=== PATIENT | female | born 1940 | race Caucasian/White ===

== ENCOUNTER 2016-09-11 20:53 | Emergency (ER) | payer OTHER ==
[~2016-09-11] VITALS: Ht 160 cm; Wt 73.9 kg
[~2016-09-11 20:53] MED LIST: ATEN25TA PO; ATOR40TA16 PO; BACT800T5 PO; NEXI40CA PO; NORC5TAB PO; TRIA1CAP6 PO
[2016-09-11 20:55] VITALS: BP 168/61; PULSE 83; RESP 18; TEMP 98.6; O2SAT 98
--- NOTE | 2016-09-11 21:09 | PD ---
HPI Chief Complaint: Chest Pain Time Seen by Provider: 20:59 Travel History International Travel<30 days: No Contact w/Intl Traveler<30days: No Traveled to known affect area: No History of Present Illness HPI This is a 75-year-old female who presents to the emergency department with chest pain on the left side that's been going on for 1 week, constant, sharp, radiating to the back, with no associated shortness of breath, nausea or diaphoresis. She says she had a stress test one week ago and ever since they injected the medicine dispute upper heart she's been having these pains. She also has a hiatal hernia and suspects the pain could be related to that. She says she received a phone call from the supervisor mold shop office hitting her stress test was abnormal and she has a "clot". She was told it would be treated by medications. She never had a follow-up appointment with her supervisor mold shop. PFSH Past Medical History Hx Anticoagulant Therapy: Yes (asa 81mg) Cardiovascular Problems: Yes High Cholesterol: Yes Chest Pain: Yes Diabetes: No Diminished Hearing: No Gastrointestinal Disorders: Yes (IBS) GERD: Yes Hiatal Hernia: Yes Hypertension: Yes ?: Not Past Surgical History Cholecystectomy: Yes Eye Surgery: Yes (BL cataracts) Hysterectomy: Yes Joint Replacement: Yes (BL knees) Other Surgery: Yes ((R) rotator cuff) Family History Family Hypercholesterolemia: Yes Social History Alcohol Use: No Tobacco Use: No Substance Use: No Allergies-Medications (Allergen,Severity, Reaction): Coded Allergies: *MDRO Multi-Drug Resistant Organism (Verified Adverse Reaction, Unknown, ) 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 HEAD: Atraumatic. Normocephalic. EYES: Pupils equal and round. No injection or drainage. ENT: Moist mucous membranes NECK: Trachea midline. CARDIOVASCULAR: Regular rate and rhythm. 3/6 systolic murmur in the right upper sternal border. RESPIRATORY: Clear to auscultation. Breath sounds equal bilaterally. GASTROINTESTINAL: Abdomen soft, non-tender, nondistended. MUSCULOSKELETAL: No obvious deformities. NEUROLOGICAL: Awake and alert. No obvious cranial nerve deficits. Moving all extremities. PSYCHIATRIC: Appropriate mood and affect; insight and judgment normal. Data Data Last Documented VS Vital Signs Date Time Temp Pulse Resp B/P Pulse Ox O2 Delivery O2 Flow Rate FiO2 09/11/16 22:06 65 18 99 Room Air 09/11/16 20:55 98.6 Orders Complete Blood Count With Diff (09/11/16 21:06) Comprehensive Metabolic Panel (09/11/16 21:06) Troponin I (09/11/16 21:06) Chest, Single Ap (09/11/16 ) Aspirin Chew (Aspirin Chew) (09/11/16 21:15) Nitroglycerin Sl (Nitrostat Sl) (09/11/16 21:30) Al-Mag Hy-Si 40-40-4 Mg/Ml Liq (Mag-Al P (09/11/16 21:45) Lidocaine 2% Viscous (Xylocaine 2% Visco (09/11/16 21:45) Wjbeq-Ejtrar-Wdyrpe-Pb Liq ( Liq (09/11/16 21:45) Electrocardiogram (09/11/16 20:54) Troponin I (09/11/16 23:14) Labs Laboratory Tests Test 09/11/16 09/11/16 20:55 23:30 White Blood Count 11.3 TH/MM3 Red Blood Count 4.37 MIL/MM3 Hemoglobin 13.1 GM/DL Hematocrit 39.0 % Mean Corpuscular Volume 89.4 FL Mean Corpuscular Hemoglobin 29.9 PG Mean Corpuscular Hemoglobin 33.5 % Concent Red Cell Distribution Width 13.7 % Platelet Count 352 TH/MM3 Mean Platelet Volume 8.7 FL Neutrophils (%) (Auto) 69.5 % Lymphocytes (%) (Auto) 21.0 % Monocytes (%) (Auto) 8.4 % Eosinophils (%) (Auto) 0.7 % Basophils (%) (Auto) 0.4 % Neutrophils # (Auto) 7.9 TH/MM3 Lymphocytes # (Auto) 2.4 TH/MM3 Monocytes # (Auto) 0.9 TH/MM3 Eosinophils # (Auto) 0.1 TH/MM3 Basophils # (Auto) 0.0 TH/MM3 CBC Comment DIFF FINAL Differential Comment Sodium Level 143 MEQ/L Potassium Level 3.0 MEQ/L Chloride Level 107 MEQ/L Carbon Dioxide Level 28.3 MEQ/L Anion Gap 8 MEQ/L Blood Urea Nitrogen 17 MG/DL Creatinine 0.75 MG/DL Estimat Glomerular Filtration 76 ML/MIN Rate Random Glucose 164 MG/DL Calcium Level 9.0 MG/DL Total Bilirubin 0.3 MG/DL Aspartate Amino Transf 17 U/L (AST/SGOT) Alanine Aminotransferase 27 U/L (ALT/SGPT) Alkaline Phosphatase 118 U/L Troponin I LESS THAN 0.02 LESS THAN 0.02 NG/ML NG/ML Total Protein 7.1 GM/DL Albumin 3.4 GM/DL [facility] Medical Decision Making Medical Screen Exam Complete: Yes Emergency Medical Condition: Yes Interpretation(s) Afebrile, no tachycardia, hypertensive Mild leukocytosis Mild hypokalemia Troponin normal 2 Chest x-rays reassuring EKG: nsr, st depression in the lateral leads Differential Diagnosis Hiatal hernia, GERD, acute coronary syndrome, unstable angina Narrative Course This is a 75-year-old female who presents to the emergency department with left- sided chest pain that's been present ever since she had a nuclear stress test 10 days ago. She was placed on a monitor and an IV was established. She does have some ST depressions on EKG. She was placed on a monitor and an IV was established. Labs are obtained which demonstrate two serial normal troponins. Her pain has been constant over the past week. It is improved here following a GI cocktail. I spoke to Dr. Obrien regarding the patient. She said the patient did in fact have an abnormal stress test with some anterior perfusion abnormality. Based on Dr. Higgins's notes she thinks he wasn't inclined to take the patient back to catheterization at this time because she was asymptomatic. I discussed with the patient that she likely requires catheterization given her new symptoms. I offered her admission for catheterization on Wednesday and monitoring in the hospital. The patient adamantly declines being admitted to the hospital. She has a developmentally delayed son at home and she has to take care of him. She understands the risks of possible heart attack or unstable angina but she would like to leave. I emphasized to her the importance of following up with her supervisor mold shop on Wednesday and she will likely need a catheterization as an outpatient. Diagnosis Primary Impression: Atypical chest pain Patient Instructions: General Instructions Additional Instructions: If you develop severe chest pain, shortness of breath, sweating, lightheadedness , dizziness or difficulty breathing return to the emergency department immediately. Follow-up with Dr. Higgins on Wednesday without fail. If your symptoms worsen over the weekend return to the emergency department without fail. Med/Other Pt SpecificInfo: No Change to Meds Disposition: 01 DISCHARGE HOME Condition: Stable Stephenie Garcia MD Sep 11, 2016 21:09
[2016-09-11] MEDS ORDERED: ASPIRIN 81 MG CHEW TAB CHEW ONE (21:15)
[2016-09-11 21:20] LABS: AUTOMATED NEUTROPHIL # 7.9 TH/MM3 (1.8-7.7); BASOPHIL % 0.4 % (0.0-2.0); EOSINOPHIL # 0.1 TH/MM3 (0-0.4); EOSINOPHIL % 0.7 % (0.0-4.0); HEMO FLAGS DIFF FINAL; LYMPHOCYTE # 2.4 TH/MM3 (1.0-4.8); MEAN CELL VOLUME 89.4 FL (80.0-100.0); MEAN CORPUSCULAR HEMOGLOBIN 29.9 PG (27.0-34.0); MEAN CORPUSCULAR HGB CONC 33.5 % (32.0-36.0); MONO % 8.4 % (0.0-8.0); NEUT % 69.5 % (16.0-70.0); PLATELET COUNT 352 TH/MM3 (150-450); RED BLOOD COUNT 4.37 MIL/MM3 (4.00-5.30); RED CELL DISTRIBUTION WIDTH 13.7 % (11.6-17.2); WHITE BLOOD COUNT 11.3 TH/MM3 (4.0-11.0)
[2016-09-11 21:28] LABS: CHLORIDE 107 MEQ/L (98-107); SODIUM (NA) 143 MEQ/L (136-145)
[2016-09-11] MEDS ORDERED: NITROGLYCERIN 0.4 MG SL 25 TABS/BTL SL PRN (21:30)
[2016-09-11 21:32] LABS: ANION GAP 8 MEQ/L (5-15); BICARBONATE 28.3 MEQ/L (21.0-32.0); BLOOD UREA NITROGEN 17 MG/DL (7-18)
[2016-09-11 21:35] LABS: ALT (GPT) 27 U/L (10-53); AST (GOT) 17 U/L (15-37); GLOMERULAR FILTRATION RATE 76 ML/MIN (>89)
[2016-09-11 21:36] LABS: TOTAL BILIRUBIN ADULT 0.3 MG/DL (0.2-1.0)
[2016-09-11 21:38] LABS: ALKALINE PHOSPHATASE 118 U/L (45-117)
[2016-09-11] MEDS ORDERED: ATROPINE/SCOPOLAM/HYOSCYAM/PB ELIXIR 10 ML CUP PO ONE (21:45)
[2016-09-11] MEDS ORDERED: ALUMINUM/MAGNESIUM/SIMETH 30 ML CUP PO ONE (21:45)
[2016-09-11] MEDS ORDERED: LIDOCAINE VISCOUS 2% SOLN 15 ML UDC SWISH-SWAL ONE (21:45)
--- NOTE | 2016-09-11 21:47 | RADHPO ---
EXAM DATE/TIME: 09/11/2016 21:21 [place] COMPARISON: CHEST SINGLE AP, October 11, 2013, 12:12. INDICATIONS : Chest pain. MEDICAL HISTORY : Hiatal hernia SURGICAL HISTORY : None. ENCOUNTER: Initial ACUITY: 1 week PAIN SCORE: 1/10 LOCATION: Bilateral chest FINDINGS: Single AP view of the chest. Subsegmental atelectasis at the lung bases. The lungs are otherwise fransisco r. Cardiomediastinal silhouette within normal limits. No evidence of pleural effusion or pneumothorax . CONCLUSION: No acute cardiopulmonary disease identified. Didier Lopez MD on September 11, 2016 at 21:44 Board Certified Radiologist. This report was verified electronically.
[2016-09-11 22:06] VITALS: PULSE 65; RESP 18; O2SAT 99
[2016-09-12 00:16] VITALS: BP 179/85; PULSE 72; RESP 18; O2SAT 99
--- NOTE | 2016-09-12 13:17 | EKG ---
Date Performed: 09/11/2016 Time Performed: 20:54:59 PTAGE: 75 years EKG: Sinus rhythm MODERATE ST DEPRESSION ABNORMAL ECG INTERPRETATION BASED ON A DEFAULT AGE OF 40 YEARS PREVIOUS TRACING : 06/25/2015 09.32 Compared to prior tracing no significant change DOCTOR: Jose Eduardo Reese Interpretating Date/Time 09/12/2016 13:16:47
== END 2016-09-12 00:19 | disposition home or self-care (01) ==
LOC: PHED 20:53
DX: R07.89 Other chest pain (principal); E78.00 Pure hypercholesterolemia, unspecified; I10 Essential (primary) hypertension; Z79.82 Long term (current) use of aspirin
CPT/HCPCS: 71010; 80053; 84484; 85025; 93005; 99284

== ENCOUNTER 2016-10-07 06:45 | Day surgery (SDC) | payer OTHER ==
[~2016-10-07] VITALS: Ht 160 cm; Wt 72.7 kg
[~2016-10-07 06:45] MED LIST changes: -BACT800T5 PO; -NORC5TAB PO
[2016-10-07] MEDS ORDERED: diphenhydrAMINE HCL 50 MG CAP ONE (07:02)
[2016-10-07] MEDS ORDERED: diphenhydrAMINE HCL 50 MG CAP PO SCH (07:15)
[2016-10-07] MEDS ORDERED: NS 1000P @30 MLS/HR (KVO) IV SCH (07:15)
[2016-10-07] MEDS ORDERED: CLAR10TA2 (07:29)
[2016-10-07] MEDS ORDERED: CO Q30CA3 (07:29)
[2016-10-07] MEDS ORDERED: MULT1TAB46 (07:29)
[2016-10-07] MEDS ORDERED: ASPI81TA67 PO (07:29)
[2016-10-07] MEDS ORDERED: CINN500C13 PO (07:29)
[2016-10-07] MEDS ORDERED: BOSW5TAB PO (07:29)
[2016-10-07] MEDS ORDERED: VITA100064 PO (07:29)
[2016-10-07] MEDS ORDERED: CALC500T35 (07:29)
[2016-10-07] MEDS ORDERED: VITATAB11 (07:29)
[2016-10-07] MEDS ORDERED: OMEG300C5 (07:29)
[2016-10-07] MEDS ORDERED: CETI1TAB53 (07:29)
[2016-10-07 07:32] VITALS: BP 160/78; PULSE 68; RESP 16; TEMP 97.6; O2SAT 98
[2016-10-07 08:05] LABS: AUTOMATED NEUTROPHIL # 5.7 TH/MM3 (1.8-7.7); BASOPHIL # 0.1 TH/MM3 (0-0.2); BASOPHIL % 0.6 % (0.0-2.0); EOSINOPHIL # 0.1 TH/MM3 (0-0.4); EOSINOPHIL % 0.9 % (0.0-4.0); HEMATOCRIT 37.9 % (35.0-46.0); HEMO FLAGS DIFF FINAL; LYMPH % 25.1 % (9.0-44.0); LYMPHOCYTE # 2.2 TH/MM3 (1.0-4.8); MEAN CORPUSCULAR HEMOGLOBIN 29.5 PG (27.0-34.0); MEAN CORPUSCULAR HGB CONC 33.9 % (32.0-36.0); MONO % 8.4 % (0.0-8.0); PLATELET COUNT 316 TH/MM3 (150-450); RED BLOOD COUNT 4.36 MIL/MM3 (4.00-5.30); RED CELL DISTRIBUTION WIDTH 14.4 % (11.6-17.2); WHITE BLOOD COUNT 8.8 TH/MM3 (4.0-11.0)
[2016-10-07 08:14] LABS: BICARBONATE 29.6 MEQ/L (21.0-32.0); POTASSIUM 3.6 MEQ/L (3.5-5.1)
[2016-10-07 08:15] LABS: INTERNATIONAL NORMALIZED RATIO 0.9 RATIO
[2016-10-07] MEDS ORDERED: HEPARIN-NS/PF INJ 500 ML ONE ×2 (08:37)
[2016-10-07] MEDS ORDERED: MIDAZOLAM HCL 2 MG/2 ML VIAL ONE ×2 (08:44→09:22)
[2016-10-07] MEDS ORDERED: VERAPAMIL HCL 5 MG/2 ML VIAL ONE (08:45)
[2016-10-07] MEDS ORDERED: NITROGLYCERIN INJ 5 ML ONE (08:45)
[2016-10-07] MEDS ORDERED: HEPARIN SODIUM - IV 10,000 UNITS/10 ML VIAL ONE (08:45)
[2016-10-07] MEDS ORDERED: ONDANSETRON HCL 4 MG/2 ML VIAL ONE (09:23)
[2016-10-07] MEDS ORDERED: CLOPIDOGREL 300 MG TAB ONE (09:31)
[2016-10-07] MEDS ORDERED: PRASUGREL 10 MG TAB ONE (09:43)
[2016-10-07] MEDS ORDERED: SODIUM CHLOR 0.9% 1000 ML INJ 1,000 ML IV SCH (09:53)
--- NOTE | 2016-10-07 09:57 | CATHPROC ---
[facility] HIS Report Study Information Study Number Admission Scheduled Start Study Start [id number] Oct 07 2016 6:45AM 10/07/2016 Oct 07 2016 8:32AM [place] [facility] Cardiac Catheterization Admit Source Facility Department Other [facility] - Engineering Recruiter Physician and Clinical Staff Initial MD Lee, Scotty Ship Wirer Kevin SKINNER, Glen Other cathlab, cathlab Other Yelena Hightower,SUSANNE Recorder Odilia Fernando,TRANSCRIBING OPERATORS SUPERVISOR TECH2 Scrub Lalo Eduardo RCIS(BS) Procedures Performed Procedure Location (Site) Vessel Name Coronary Angiograms LCA Left Coronary Coronary Angiograms RCA Right Coronary Drug Eluting Inflatio LAD Prox Left Coronary L Heart Cath LV Gram-hand inj. LV LV Ventricle PTCA LAD Prox Left Coronary Equipment Time Automotive Service Cashier Description Size Mfg Part Number Used/Scraped COPILOT VALVE, BLEEDBACK [id number] 09:20 [employer] Used CONTROL *[id number] TRANSDUCER, TRUWAVE [id number] 08:44 MOLINA HIGHTOWER * Used W/STOCKCOCK *[id number] [id number] *[id number] 534-521T *[id number] *[id number] 08:44 MEDLINE INDUSTRIES PACK, CCL CUSTOM * Used *[id number] 08:44 Kiwiple SUPPORT, ARTERIAL ADULT 01430 Used BALLOON, 3.25 X 12MM NC [id number] 09:38 MEDTRONIC 12MM Used EUPHORA *[id number] STENT, 3.0 15 RESOLUTE [id number] 09:30 MEDTRONIC 3.0 15 Used INTEGRITY RX *[id number] 09:30 [employer] MEDICAL 30 CODY INDEFLATOR Used *[id number] BAND, RADIAL COMPRESSION TR [id number] 09:38 [employer] MEDICAL 24CM Used SHORT 24 *[id number] 09:20 turntable.fm PACK, ANGIOPLASTY * [id number] Used [id number] 08:44 turntable.fm WIRE, 3MMJ .035 180CM 180CM Used *[id number] 08:44 NAMIC MANIFOLD, 4 PORT * Used *[id number] 08:44 NYCOMED OMNIPAQUE, 350 MG, 150ML 150ML [id number] Used [id number] 08:44 [employer] MEDICAL BLANKET,WARM AIR CCL * Used *[id number] SHEATH, FR6 TRANSRADIAL 08:44 TERSlidely MEDICAL FR 6 RM*[id number] Used SLENDER 10CM 09:16 [place] PRIME WIRE, VERRATA 185CM 185CM [id number] *[id number] Used Equipment Model, Serial, Lot Number and Expiration Data Description Model Number Serial Number Lot Number Expiration Date PACK, ANGIOPLASTY [id number] 04-28-2019 PRIME WIRE, VERRATA 185CM [id number] 07-27-2019 STENT, 3.0 15 RESOLUTE [id number] 06-14-2018 INTEGRITY RX History: Current Medications Medication Dosage/Unit Route Frequency Last Date/Time Taken ASA Statins (any) Nexium History: Allergies Allergy Reaction *MDRO Multi-Drug Resistant Organism History: Risk Factors Family History of Hypertension Dyslipidemia Previous UT Previous Heart Failure Premature CAD Yes Yes Yes No No Prior Valve Prior PCI Prior CABG Surgery No No No Cerebrovascular Peripheral Artery Chronic Lung On Dialysis Diabetes Disease Disease Disease No No No No No History: Stress Tests Stress or Imaging Studies Performed Yes Standard Exercise Stress Test No Stress Echo No Stress Test SPECT No Stress Test CMR Stress Test CMR Result Yes Indeterminant Cardiac CTA Coronary Calcium Score No No History: Other Disease Selection Items CAD Gerd HTN History: Other Current Smoker No Labs Hgb (g/dl) Hct (%) WBC (l/cumm) Platelets (thousands) 11.60-17.00 35.00-51.00 4.00-11.00 150.00-450.00 12.9 37.9 8.8 316 Glucose (mg/dl) BUN (mg/dl) Creatinine (mg/dl) BUN:Creatinine (1:x) 74.00-106.00 7.00-18.00 0.50-1.30 10.00-20.00 99 12 0.7 17.1 Na (meq/l) K (meq/l) 136.00-145.00 3.50-5.10 144 3.6 Medication Medication Total Dose (Bolus/Oral) Medication Total Dosage/Unit 1% XYLOCAINE 5 mL EFFIENT 60 mg FENTANYL 75 mcg HEPARIN 5000 units OXYGEN 2 l/min RADIAL COCKTAIL 5 mL (Bolus) VERSED 2 mg ZOFRAN 4 mg Medications (Bolus/Oral) Medication Time Given Dosage/Unit Administered By Reason FENTANYL 10/07/2016 8:59:00 AM 50 mcg Glen Brown RN 50 mcg FENTANYL given in lab by Glen Brown RN in Left Antecubital via Peripheral IV. Ordered by Scotty Patel. VERSED 10/07/2016 9:00:25 AM 2 mg Glen Brown RN 2 mg VERSED given in lab by Glen Brown RN via Peripheral IV. Ordered by Scotty Lee. 1% XYLOCAINE 10/07/2016 9:01:59 AM 5 mL Scotty Lee 5 mL 1% XYLOCAINE given in lab by Scotty Lee in Right Radial via Subcutaneous. Ordered by Scotty Henderson. OXYGEN 10/07/2016 9:02:48 AM 2 l/min Glen Brown RN 2 l/min OXYGEN given in lab by Glen Brown RN via Nasal. Ordered by Scotyt Lee. Ntg 200mcg Verapamil 2.5mg Heparin RADIAL COCKTAIL 10/07/2016 9:04:23 AM 5 mL (Bolus) Scotty Lee 2500U 5 mL (Bolus) RADIAL COCKTAIL given in lab by Scotty Lee via Radial. Using [Solution Name]. Ord ered by Scotty Lee. Reason: Ntg 200mcg Verapamil 2.5mg Heparin 2500U. HEPARIN 10/07/2016 9:18:14 AM 5000 units Glen Brown RN 5000 units HEPARIN given in lab by Glen Brown RN in Left Antecubital via Peripheral IV. Ordered by Scotty Lee. FENTANYL 10/07/2016 9:19:20 AM 25 mcg Glen Brown RN 25 mcg FENTANYL given in lab by Glen Brown RN in Left Antecubital via Peripheral IV. Ordered by Scotty Patel. ZOFRAN 10/07/2016 9:24:48 AM 4 mg Yelena Hightower 4 mg ZOFRAN given in lab by Yelena Hightower RN in Right Antecubital via Peripheral IV. Ordered by Scotty Lee. EFFIENT 10/07/2016 9:42:53 AM 60 mg Glne Brown RN 60 mg EFFIENT given in lab by Glen Brown RN via Oral. Ordered by Scotty Lee. Medication (Drip) Medication Time Given Dosage/Unit Concentration/Unit Diluent (ml) Solutio n IV Solutions 10/07/2016 8:32:20 AM 0 mL (IV) NaCl .9 Patient arrived on IV Solutions given by cathlab, cathlab in Left Antecubital via Peripheral IV. Pump /Drip Flow = 20 ml/hr using NaCl .9. Ordered by Scotty Lee. Initial Case Assessment Cardiovascular HR NIBP 66 177/76 Edema Present Skin color Skin None Normal Warm Dry Circulatory - Right Pulses Dorsalis Pedis Femoral Radial 1 2 2 Scale (0,1,2,3,4,d) Scale (0,1,2,3,4,d) Neurological State Oriented to time-place- Alert Moves all extremities person Respiration - General Respiration Rate SpO2 (%) (B/min) 11 100 Initial Case Assessment Cardiovascular HR NIBP 71 140/59 Edema Present Skin color Skin None Normal Warm Dry Circulatory - Right Pulses Dorsalis Pedis Femoral Radial 1 2 2 Scale (0,1,2,3,4,d) Scale (0,1,2,3,4,d) Neurological State Oriented to time-place- Alert Moves all extremities person Respiration - General Respiration Rate SpO2 (%) (B/min) 12 98 Chronological Log Time Study Chronological Log 8:32:09 Patient arrived via Bed. 8:32:10 Patient Name, D.O.B, / Armband Verified By R.N. 8:32:11 Consent signed by the physician and the patient and verified by the Engineering Recruiter staff. 8:32:12 Pre-op and post- op instructions given; patient acknowledges understanding of instructions. 8:32:14 Patient has been NPO for More than 6Hrs. 8:32:15 NO Skin Breakdown- 8:32:16 Patient Warmer Placed on the Table. 8:32:20 A # 10 IV was noted in the Antecubital (left). Grade = 0 Patient arrived on IV Solutions given by cathlab, cathlab in Left Antecubital via Peripheral IV. Pump/Drip Flow = 20 8:32:20 ml/hr using NaCl .9. Ordered by Scotty Lee. Vitals capture started with the following parameters, Patient=Adult, Interval=5 min, Initial Pre hlgqo=083 mmHg, 8:41:43 Deflation Rate=5 mmHg 8:41:47 History and physical on the chart or being dictated. 8:42:13 Reference ECG taken 8:43:08 HR=66 bpm, QGDU=776/76 mmhg, SpO2=99.0 %, Resp=11 B/min, Pain=0, Joaquin=10, Allen=2 Assessment: Initial Case, HR=66 BPM, OFET=301/76 mmhg, Edema=None, Color=Normal, Skin = Warm, Dr y Right Pulses: Rai Ped=1, Femoral=2, Radial=2 8:43:29 Neurological: State=Alert, Ox3, CAMARA Respiration: Resp=11 B/min, GkL8=559 % 8:47:22 HR=64 bpm, YEEZ=082/74 mmhg, SpO2=98.0 %, Resp=14 B/min, Pain=0, Joaquin=10, Allen=2 8:50:01 Pressure channel 1 zeroed. 8:52:25 HR=65 bpm, MTKK=059/71 mmhg, PwN8=023.0 %, Resp=9 B/min, Pain=0, Joaquin=10, Allen=2 8:57:26 HR=59 bpm, ISNF=355/69 mmhg, SpO2=99.0 %, Resp=11 B/min, Pain=0, Joaquin=10, Allen=2 8:59:00 50 mcg FENTANYL given in lab by Glen Brown RN in Left Antecubital via Peripheral IV. Order ed by Scotty Lee. 9:00:25 2 mg VERSED given in lab by Glen Brown RN via Peripheral IV. Ordered by Pedro. Rosa 9:01:57 Case Start 5 mL 1% XYLOCAINE given in lab by Scotty Lee in Right Radial via Subcutaneous. Ordered by Rosa 9:01:59 Scotty. 9:02:19 HR=52 bpm, ADLA=455/81 mmhg, SpO2=96.0 %, Resp=12 B/min, Pain=0, Joaquin=10, Allen=2 9:02:47 Access site was Radial Artery. 9:02:48 2 l/min OXYGEN given in lab by Glen Brown RN via Nasal. Ordered by Scotty Lee. A SHEATH, FR6 TRANSRADIAL SLENDER 10CM FR 6 was advanced into the Radial (right) using the Modif ied Seldingchay :59 technique. A JR 4.0 INFINITI CATHETER FR 5 was advanced over a wire. OMNIPAQUE, 350 MG, 150ML 150ML was use d for 9:03:44 injections. 5 mL (Bolus) RADIAL COCKTAIL given in lab by Scotty Lee via Radial. Using [Solution Name] . Ordered by Ruthie 9:04:23 Scotty Lewis. Reason: Ntg 200mcg Verapamil 2.5mg Heparin 2500U. Recorded Pressure: LV, HR=68, Condition=Condition 1 9:05:24 (Left Ventricle) LV 141/2/14 9:05:45 The LV was manually injected with 10 cc's and visualized. OMNIPAQUE, 350 MG, 150ML 150ML use d. Recorded Pressure: LV, Ao, HR=67, Condition=Condition 1 9:06:13 (Left Ventricle) LV 164/9/16, (Aorta) Ao 160/55/102 9:07:26 HR=70 bpm, TXDD=536/66 mmhg, SpO2=97.0 %, Resp=13 B/min, Pain=0, Joaquin=10, Allen=2 9:07:26 The RCA was injected and visualized at various angles. OMNIPAQUE, 350 MG, 150ML 150ML used. After removing the current catheter a JL 3.5 INFINITI CATHETER FR 5 was advanced over a WIRE, 3M MJ .035 180CM 9:07:35 180CM. Recorded Pressure: Ao, HR=60, Condition=Condition 1 9:08:45 (Aorta) Ao 151/61/96 9:09:35 The LCA was injected and visualized at various angles. OMNIPAQUE, 350 MG, 150ML 150ML used. 9:12:28 HR=68 bpm, WFUV=671/63 mmhg, SpO2=97.0 %, Resp=13 B/min, Pain=0, Joaquin=10, Allen=2 9:16:13 After removing the current catheter a XB 3.5 GUIDE CATHETER FR 6 was advanced over a wire. 9:17:25 HR=73 bpm, LNLC=063/71 mmhg, SpO2=98.0 %, Resp=15 B/min, Pain=0, Joaquin=10, Allen=2 9:18:14 5000 units HEPARIN given in lab by Glen Brown RN in Left Antecubital via Peripheral IV. Or dered by Scotty Lee. 9:19:20 25 mcg FENTANYL given in lab by Glen Brown RN in Left Antecubital via Peripheral IV. Order ed by Scotty Lee. 9:21:56 Pressure channel 1 zeroed. 9:23:07 HR=81 bpm, GLMS=256/77 mmhg, SpO2=98.0 %, Resp=14 B/min, Pain=0, Joaquin=10, Allen=2 9:24:17 Flow Wire was was placed in the LAD Prox. The FFR measures 0.84 percent. The IFR measures ~I FR~ Percent. 4 mg ZOFRAN given in lab by Yelena Hightower RN in Right Antecubital via Peripheral IV. Ordere d by Rosa, 9:24:48 Scotty. 9:27:35 HR=66 bpm, KBFL=858/59 mmhg, SpO2=97.0 %, Resp=13 B/min, Pain=0, Joaquin=10, Allen=2 A STENT, 3.0 15 RESOLUTE INTEGRITY RX 3.0 15 was advanced through a XB 3.5 GUIDE CATHETER FR 6 o micki a 9:30:42 PRIME WIRE, VERRATA 185CM 185CM. A STENT, 3.0 15 RESOLUTE INTEGRITY RX 3.0 15 was deployed using a 30 CODY INDEFLATOR at 12 atmosp heres for 9:31:59 20 seconds in the LAD Prox. 9:32:28 HR=74 bpm, IAJH=046/63 mmhg, SpO2=98.0 %, Resp=12 B/min, Pain=0, Joaquin=10, Allen=2 9:32:30 Delivery device removed 9:35:23 A balloons was inserted over PRIME WIRE, VERRATA 185CM 185CM via the LAD Prox. A BALLOON, 3.25 X 12MM NC EUPHORA 12MM over a PRIME WIRE, VERRATA 185CM 185CM in the LAD Prox wa s 9:35:41 inflated using a 30 CODY INDEFLATOR at 18 cody for 20 sec. A BALLOON, 3.25 X 12MM NC EUPHORA 12MM over a PRIME WIRE, VERRATA 185CM 185CM in the LAD Prox wa s 9:36:38 inflated using a 30 CODY INDEFLATOR at 18 cody for 20 sec. 9:37:04 Balloon Removed. 9:37:27 HR=76 bpm, RDEM=346/73 mmhg, UgR4=166.0 %, Resp=16 B/min, Pain=0, Joaquin=10, Allen=2 9:38:06 Wire removed 9:38:08 Catheter was removed 9:39:19 Case End PCI QA completed: Pre-Jermaine - ~PRE JERMAINE~, Post Jermaine - ~POST JERMAINE~, Type - C, Length - 15 mm, Morp hology - 9:39:20 Atypical, Indications - Lesion > 50 non-stem, Pre-Stenosis - 70% and Post Stenosis - 0%. 9:39:21 PCI QA obtained from Plumbing Service Technician 9:42:04 Catheter(s) removed without difficulty Radial Compression Device Used. 10 mLs of air placed in BAND, RADIAL COMPRESSION TR SHORT 24 24C M. Affected 9:42:07 hand 978 % O2 saturation. 9:42:32 HR=71 bpm, DQBX=347/59 mmhg, SpO2=98.0 %, Resp=12 B/min, Pain=0, Joaquin=10, Allen=2 9:42:53 60 mg EFFIENT given in lab by Glen Brown RN via Oral. Ordered by Scotty Lee. Assessment: Initial Case, HR=71 BPM, XRON=062/59 mmhg, Edema=None, Color=Normal, Skin = Warm, Dr y Right Pulses: Rai Ped=1, Femoral=2, Radial=2 9:43:56 Neurological: State=Alert, Ox3, CAMARA Respiration: Resp=12 B/min, SpO2=98 % 9:45:04 Vitals capture stopped. 9:45:41 No case complications noted. 9:45:43 Cine recording checked. 9:45:46 Contrast Scanned 9:45:49 A Left Heart Cath was performed. 9:45:52 Patient moved to [facility] End Study - Contrast Media Used In Study Contrast Total Opened (mL) Total Used (mL) Total Wasted (mL) Omnipaque 105 105 0 End Study - Maximum Contrast Load Max Contrast Load (mL) 519.2 End Study - Radiation Exposure Fluoro Time (minutes) 9.9 End Study - Patient Disposition Complications Transferred To Interventional Outcome No Telemetry Bed successful
[2016-10-07] MEDS ORDERED: ONDANSETRON HCL 4 MG/2 ML VIAL IV PRN (10:00)
[2016-10-07] MEDS ORDERED: ACETAMINOPHEN 325 MG TAB PO PRN (10:00)
[2016-10-07] MEDS ORDERED: ATROPINE SULFATE 1 MG/ML VIAL IV PRN (10:00)
[2016-10-07] MEDS ORDERED: PRASUGREL 10 MG TAB PO ONE (10:00)
[2016-10-07] MEDS ORDERED: MISC INFORMATION XX ONE (10:00)
--- NOTE | 2016-10-07 10:16 | MA ---
cc: MIRACLEDAMON Freitas DATE: 10/07/2016 DATE OF : 1940 PROCEDURE PERFORMED 1. Left heart catheterization. 2. Selective right and left coronary angiography. 3. Left ventriculogram. 4. IFR to LAD. 5. Successful PCI/JONATHAN to proximal LAD. INDICATION Positive stress test/angina/positive IFR. PROCEDURE DESCRIPTION Consent signed. The patient was brought into the cardiac laborer concrete paving in a fasting state. The right wrist and groin were prepped and draped in a sterile fashion. Using 1% lidocaine for local anesthesia and a micropuncture kit a 6-Slov[place] sheath was inserted into the right radial artery. An antispasmodic cocktail was given. Selective right and left coronary angiography was performed with a JR4 and a JL 3.5 diagnostic catheter. Angiography was taken in multiple views. The JR4 was introduced into the ventricle over a wire. This was followed by pressure recordings, left ventriculogram and pullback. We identified a progression of the proximal LAD lesion that was seen in the previous laborer concrete paving of 70% stenosis. Given the borderline significance of the obstructions we decided to do an IFR to further assess for ischemia. To do the IFR the left main was engaged with a EBU 3.5 guide. IV heparin was given for anticoagulation. The pressure wire was equalized outside the lesion and advanced across the LAD and parked distally into the LAD. This was followed by pressure recordings. The final IFR was 0.84 which is significant for ischemia, thus we decided to directly stent the lesion with a 3.0 x 15 drug-eluting stent. The stent was post dilated with a noncompliant 3.2 x 12 balloon to high atmospheres. Final angiographic views revealed good stent apposition and expansion with ASAD-III flow and no residual stenosis. The patient tolerated the procedure well without complications. Estimated blood loss less than 30 cc. Total contrast used 100 cc. The right wrist access site was closed with a TR band. RESULTS LEFT VENTRICLE The left ventricular pressure was 164/9 with an LVEDP of 16. The aortic pressure was 151/61 with a mean of 96. The left ventriculogram revealed a symmetrically roxanna ventricle with an estimated ejection fraction of 60%. There was no gradient upon pullback from the left ventricle to the aorta. ANGIOGRAPHY 1. The right coronary artery is a dominant vessel giving off the PDA. The RCA is a small vessel. It has no significant CAD. It does have a 10 % lesion in the proximal segment. The PDA is small and patent. 2. The left main is wide open and patent. 3. The LAD is a transapical vessel, has minimal calcifications especially in its proximal to midsegment, is tortuous. There is a 70% lesion in the proximal segment of this vessel. There is one prominent diagonal vessel which is tortuous and patent with nonobstructive coronary artery disease. 4. The left circumflex artery is tortuous. It has minimal luminal irregularities throughout. She has three OM branches, all patent with ASAD-III flow and really tortuous. The AV groove segment of the left circumflex is patent with ASAD-III flow and nonobstructive disease. CONCLUSIONS 1. Successful PCI/JONATHAN to proximal LAD in the setting of positive stress test and positive IFR. 2. Preserved LV systolic function. RECOMMENDATIONS The patient will be transferred to the DOC unit for post-cath recovery. She will be continued on aspirin and Effient for dual-antiplatelet agent as well as aggressive medical management for cardiovascular risk factors. If stable she should be able to be discharged home today with follow-up with me in 7 days. MD ABILIO Llamas/BT /9:51 AM /10:03 AM JEREL
[2016-10-07] MEDS ORDERED: IOHEXOL 350 MG/ML 100 ML BTL (for Cath Lab) OTHER ONE (14:05)
[2016-10-07] MEDS ORDERED: IOHEXOL 350 MG/ML 50 ML BTL (for Cath Lab) OTHER ONE (14:05)
--- NOTE | 2016-10-07 16:26 | EKG ---
Date Performed: 10/07/2016 Time Performed: 07:51:40 PTAGE: 75 years EKG: Sinus bradycardia. Low QRS voltages in precordial leads Borderline ECG PREVIOUS TRACING : 09/11/2016 20.54 No significant change from previous tracing noted. DOCTOR: Franklyn Adam Interpretating Date/Time 10/07/2016 16:25:04
[2016-10-07] MEDS ORDERED: ATORVASTATIN 10 MG TAB PO SCH (21:00)
[2016-10-07] MEDS ORDERED: METOPROLOL TARTRATE 25 MG TAB PO SCH (21:00)
[2016-10-08] MEDS ORDERED: PRASUGREL 10 MG TAB PO SCH (09:00)
[2016-10-08] MEDS ORDERED: ASPIRIN 81 MG CHEW TAB PO SCH (09:00)
[2016-10-08] MEDS ORDERED: RAMIPRIL 2.5 MG CAP PO SCH (09:00)
== END 2016-10-07 15:00 | disposition home or self-care (01) ==
LOC: HCAT 06:45 → HDIC 06:46 → HCAT 15:00
PROVIDERS: ATTEND Radiology Vascular & Interventional Radiology
DX: I25.119 Atherosclerotic heart disease of native coronary artery with unspecified angina pectoris (principal); I11.9 Hypertensive heart disease without heart failure; E78.5 Hyperlipidemia, unspecified; K21.9 Gastro-esophageal reflux disease without esophagitis; R07.9 Chest pain, unspecified; Z01.818 Encounter for other preprocedural examination
CPT/HCPCS: 80048; 85025; 85610; 85730; 92928; 93005; 93458; 93571; C1725; C1769; C1874; C1887; C1893; J1644; J2250; J2405; J3010; J7030; Q0163; Q9967

== ENCOUNTER 2016-10-11 01:47 | Observation (INO) | payer OTHER ==
[2016-10-11] VITALS (7 sets, daily range): BP systolic 131–176; BP diastolic 65–95; PULSE 58–63; RESP 20; O2SAT 98–99
[~2016-10-11 01:47] MED LIST changes: +ASPI81TA67 PO; +BOSW5TAB PO; +CALC500T35; +CETI1TAB53; +CINN500C13 PO; +CLAR10TA2; +CO Q30CA3; +MULT1TAB46; +OMEG300C5; +VITA100064 PO; +VITATAB11
[2016-10-11] MEDS ORDERED: SODIUM CHLORIDE 0.9% FLUSH 10 ML FLUSH IVF PRN (02:00)
--- NOTE | 2016-10-11 02:01 | PD ---
HPI Chief Complaint: Chest Pain Time Seen by Provider: 01:59 Travel History International Travel<30 days: No Contact w/Intl Traveler<30days: No History of Present Illness HPI This is a 75-year-old female who presents to the emergency department having had a stent to her LAD on October [address] Villa. She was feeling fine after the procedure but today started to have left-sided chest discomfort described as tightness, intermittent, associated with clamminess and diaphoresis as well as some shortness of breath. Patient says this feels different than how she felt before she got the stent put in. She denies any recent long trips or car rides. She denies any pleuritic pain. PFSH Past Medical History Hx Anticoagulant Therapy: Yes (asa 81mg) Cardiac Catheterization: Yes Cardiovascular Problems: Yes High Cholesterol: Yes Chest Pain: Yes Coronary Artery Disease: Yes Diabetes: No Diminished Hearing: No Gastrointestinal Disorders: Yes (gerd) GERD: Yes Hiatal Hernia: Yes Hypertension: Yes Menopausal: Yes Past Surgical History Cholecystectomy: Yes Eye Surgery: Yes (BL cataracts) Hysterectomy: Yes Joint Replacement: Yes (BL knees) Other Surgery: Yes ((R) rotator cuff) Family History Family Hypercholesterolemia: Yes Social History Alcohol Use: No Tobacco Use: No Substance Use: No Allergies-Medications (Allergen,Severity, Reaction): Coded Allergies: *MDRO Multi-Drug Resistant Organism (Verified Adverse Reaction, Unknown, ) 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 Reported Meds & Prescriptions Reported Meds & Active Scripts Active Reported Effient (Prasugrel) 10 Mg Tab 10 Mg PO DAILY Garlic Oil 1000 (Garlic) 2 Mg Cap 1,000 Mg PO DAILY Triamterene-Hydrochlorothiazide 37.5-25 Mg Tab 1 Tab PO DAILY Vitamin B Complex (B-Complex Vitamins) 1 Tab Calcium (Oyster Shell) 500 Mg Tab Osteo Bi-Flex One A Day (Tbunlfiyx-Biubrnhvluy-Kvrsegu) 1 Tab 1 Tab PO DAILY Eql Cinnamon (Cinnamon) 500 Mg Cap 1,000 Mg PO DAILY Zyrtec-D Tablet (Cetirizine HCl/Pseudoephedrine) 1 Each Tab.er.12h Vitamin D3 (Cholecalciferol) 1,000 Unit Tab 1,000 Units PO DAILY Multi Vitamin Daily (Multiple Vitamin) 1 Tab Tab Fish Oil ([place]-3 Fatty Acids) 300 Mg Capsule Co Q10 (Coenzyme Q10 (Ubidecarenone)) 30 Mg Cap Claritin (Loratadine) [address] (Aspirin) 81 Mg Tabdr 81 Mg PO DAILY Atorvastatin (Atorvastatin Calcium) 40 Mg Tab 50 Mg PO HS Atenolol 25 Mg Tab 25 Mg PO HS Nexium (Esomeprazole DR) 40 Mg Capdr 40 Mg PO DAILY Review of Systems Except as stated in HPI: all other systems reviewed are Neg Physical Exam Narrative GENERAL:Well appearing, no acute distress SKIN: Focused skin assessment warm and dry. HEAD: Atraumatic. Normocephalic. EYES: Pupils equal and round. No injection or drainage. ENT: Moist mucous membranes NECK: Trachea midline. CARDIOVASCULAR: 1+ bilateral pitting edema in the lower extremities. RESPIRATORY: Clear to auscultation. Breath sounds equal bilaterally. GASTROINTESTINAL: Abdomen soft, non-tender, nondistended. MUSCULOSKELETAL: No obvious deformities. NEUROLOGICAL: Awake and alert. No obvious cranial nerve deficits. All extremities. PSYCHIATRIC: Appropriate mood and affect; insight and judgment normal. Data Data Last Documented VS Vital Signs Date Time Temp Pulse Resp B/P Pulse Ox O2 Delivery O2 Flow Rate FiO2 10/11/16 02:43 59 20 148/72 98 10/11/16 02:09 Room Air 10/11/16 02:02 2 Orders Electrocardiogram (10/11/16 01:59) Complete Blood Count With Diff (10/11/16 01:59) Comprehensive Metabolic Panel (10/11/16 01:59) Magnesium (Mg) (10/11/16 01:59) Troponin I (10/11/16 01:59) Chest, Single Ap (10/11/16 01:59) Ecg Monitoring (10/11/16 01:59) Bilateral Bp Monitoring (10/11/16 01:59) Iv Access Insert/Monitor (10/11/16 01:59) Oximetry (10/11/16 01:59) Oxygen Administration (10/11/16 01:59) Sodium Chloride 0.9% Flush (Ns Flush) (10/11/16 02:00) Ed Poc Ultrasound (10/11/16 ) Nitroglycerin 2% Oint (Nitroglycerin 2% (10/11/16 02:30) Admit Order (Ed Use Only) (7/16/17 02:55) Labs Laboratory Tests Test 10/11/16 01:55 White Blood Count 11.0 TH/MM3 Red Blood Count 4.62 MIL/MM3 Hemoglobin 13.2 GM/DL Hematocrit 40.2 % Mean Corpuscular Volume 87.0 FL Mean Corpuscular Hemoglobin 28.6 PG Mean Corpuscular Hemoglobin 32.8 % Concent Red Cell Distribution Width 13.6 % Platelet Count 368 TH/MM3 Mean Platelet Volume 8.8 FL Neutrophils (%) (Auto) 62.0 % Lymphocytes (%) (Auto) 27.1 % Monocytes (%) (Auto) 8.9 % Eosinophils (%) (Auto) 1.2 % Basophils (%) (Auto) 0.8 % Neutrophils # (Auto) 6.8 TH/MM3 Lymphocytes # (Auto) 3.0 TH/MM3 Monocytes # (Auto) 1.0 TH/MM3 Eosinophils # (Auto) 0.1 TH/MM3 Basophils # (Auto) 0.1 TH/MM3 CBC Comment DIFF FINAL Differential Comment Sodium Level 144 MEQ/L Potassium Level 3.6 MEQ/L Chloride Level 107 MEQ/L Carbon Dioxide Level 28.4 MEQ/L Anion Gap 9 MEQ/L Blood Urea Nitrogen 13 MG/DL Creatinine 0.74 MG/DL Estimat Glomerular Filtration 77 ML/MIN Rate Random Glucose 108 MG/DL Calcium Level 9.9 MG/DL Magnesium Level 2.0 MG/DL Total Bilirubin 0.5 MG/DL Aspartate Amino Transf 26 U/L (AST/SGOT) Alanine Aminotransferase 29 U/L (ALT/SGPT) Alkaline Phosphatase 148 U/L Troponin I 0.03 NG/ML Total Protein 7.2 GM/DL Albumin 3.5 GM/DL [facility] Medical Decision Making Medical Screen Exam Complete: Yes Emergency Medical Condition: Yes Interpretation(s) Hypertensive, no tachycardia No leukocytosis Electrolytes are reassuring Troponin is normal Chest x-ray: No acute process Differential Diagnosis Acute coronary syndrome, pulmonary embolism, costochondritis, pneumonia Narrative Course This is a 75-year-old female who presents to the emergency department with chest discomfort that started yesterday. She had a stent put in [address] Villa. She was placed on a monitor and an IV was established. EKG is reassuring. Labs are obtained which are unremarkable. Patient will be placed in observation for cardiology consultation in the morning. I considered pulmonary embolism but she has 98% on room air, has no pleuritic chest pain and otherwise doesn't appear dyspneic. Physician Communication Physician Communication Discussed with Dr. Sosa Diagnosis Primary Impression: Chest pain Qualified Code: R07.9 - Chest pain, unspecified type Admitting Information Admitting Physician Requests: Stephenie Saunders MD Oct 11, 2016 02:01
[2016-10-11 02:08] LABS: AUTOMATED NEUTROPHIL # 6.8 TH/MM3 (1.8-7.7); BASOPHIL # 0.1 TH/MM3 (0-0.2); BASOPHIL % 0.8 % (0.0-2.0); EOSINOPHIL # 0.1 TH/MM3 (0-0.4); EOSINOPHIL % 1.2 % (0.0-4.0); HEMATOCRIT 40.2 % (35.0-46.0); HEMO FLAGS DIFF FINAL; LYMPH % 27.1 % (9.0-44.0); MEAN CORPUSCULAR HEMOGLOBIN 28.6 PG (27.0-34.0); MEAN CORPUSCULAR HGB CONC 32.8 % (32.0-36.0); MONO % 8.9 % (0.0-8.0); PLATELET COUNT 368 TH/MM3 (150-450); RED BLOOD COUNT 4.62 MIL/MM3 (4.00-5.30); RED CELL DISTRIBUTION WIDTH 13.6 % (11.6-17.2)
[2016-10-11 02:18] LABS: CHLORIDE 107 MEQ/L (98-107); POTASSIUM 3.6 MEQ/L (3.5-5.1); SODIUM (NA) 144 MEQ/L (136-145)
--- NOTE | 2016-10-11 02:18 | RADRPT ---
EXAM DATE/TIME: 10/11/2016 02:09 [facility] COMPARISON: CHEST SINGLE AP, September 11, 2016, 21:21. INDICATIONS : Chest pain. MEDICAL HISTORY : Hiatal hernia. SURGICAL HISTORY : Total knee replacement, right. Total knee replacement, left. ENCOUNTER: Initial ACUITY: 1 day PAIN SCORE: 7/10 LOCATION: Bilateral chest FINDINGS: Cardiomegaly. No consolidation or effusion. Stable scarring at the bases. Osseous structures are inta ct. CONCLUSION: No significant change has occurred. Joaquin Yee MD on October 11, 2016 at 2:16 Board Certified Radiologist. This report was verified electronically.
[2016-10-11 02:22] LABS: ANION GAP 9 MEQ/L (5-15); BICARBONATE 28.4 MEQ/L (21.0-32.0); BLOOD UREA NITROGEN 13 MG/DL (7-18)
[2016-10-11 02:25] LABS: ALT (GPT) 29 U/L (10-53); AST (GOT) 26 U/L (15-37); GLOMERULAR FILTRATION RATE 77 ML/MIN (>89)
[2016-10-11 02:27] LABS: TOTAL BILIRUBIN ADULT 0.5 MG/DL (0.2-1.0)
[2016-10-11 02:28] LABS: ALKALINE PHOSPHATASE 148 U/L (45-117)
[2016-10-11] MEDS ORDERED: NITROGLYCERIN 2% OINT 1 GM PACKET TOPICAL ONE (02:30)
[2016-10-11] MEDS ORDERED: GARL1000 PO (02:32)
[2016-10-11] MEDS ORDERED: TRIA37.5 PO (02:32)
[2016-10-11] MEDS ORDERED: PRAS10TA PO (02:42)
[2016-10-11] MEDS ORDERED: LACTULOSE SYRUP 20 GM/30 ML CUP PO PRN (03:00)
[2016-10-11] MEDS ORDERED: ACETAMINOPHEN 325 MG TAB PO PRN (03:00)
[2016-10-11] MEDS ORDERED: MAGNESIUM HYDROXIDE SUSP 30 ML CUP PO PRN (03:00)
[2016-10-11] MEDS ORDERED: ONDANSETRON HCL 4 MG/2 ML VIAL IVP PRN (03:00)
[2016-10-11] MEDS ORDERED: SENNOSIDES 8.6 MG TAB PO PRN (03:00)
[2016-10-11] MEDS ORDERED: BISACODYL 10 MG SUPP RECTAL PRN (03:00)
[2016-10-11] MEDS ORDERED: SODIUM CHLORIDE 0.9% FLUSH 10 ML FLUSH IV FLUSH PRN (03:00)
[2016-10-11] MEDS ORDERED: MORPHINE SULFATE 8 MG/ML INJ IV PUSH PRN (03:15)
[2016-10-11] MEDS ORDERED: NITROGLYCERIN 2% OINT 1 GM PACKET TOPICAL PRN (09:00)
[2016-10-11] MEDS ORDERED: SODIUM CHLORIDE 0.9% FLUSH 10 ML FLUSH IV FLUSH SCH (09:00)
[2016-10-11] MEDS ORDERED: PANTOPRAZOLE SOD 40 MG DELAYED RELEASE TAB PO SCH (09:00)
[2016-10-11] MEDS ORDERED: DOCUSATE SODIUM 50 MG/SENNA 8.6 MG TAB PO SCH (09:00)
[2016-10-11] MEDS ORDERED: TRIAMTERENE/HCTZ 37.5 MG/25 MG TAB PO SCH (09:00)
[2016-10-11] MEDS ORDERED: ASPIRIN EC 81 MG TABEC PO SCH (09:00)
[2016-10-11] MEDS ORDERED: PRASUGREL 10 MG TAB PO SCH (09:00)
[2016-10-11] MEDS ORDERED: CHOLECALCIFEROL (VIT D3) 1000 UNIT TAB PO SCH (09:00)
[2016-10-11] MEDS ORDERED: ATENOLOL 25 MG TAB PO SCH (21:00)
[2016-10-11] MEDS ORDERED: ATORVASTATIN 10 MG TAB PO SCH (21:00)
--- NOTE | 2016-10-12 19:30 | EKG ---
Date Performed: 10/11/2016 Time Performed: 01:54:43 PTAGE: 75 years EKG: Sinus rhythm LOW QRS VOLTAGE IN PRECORDIAL LEADS BORDERLINE ECG PREVIOUS TRACING : 10/07/2016 07.51 Since previous tracing, no significant change noted DOCTOR: Roc Proctor Interpretating Date/Time 10/12/2016 19:30:34
== END 2016-10-11 06:25 | disposition left against medical advice (07) ==
LOC: PHED 01:47 → PHEDA 02:56
PROVIDERS: ADMIT Hospitalist; ATTEND Hospitalist
DX: R07.89 Other chest pain (principal); R06.02 Shortness of breath; R61 Generalized hyperhidrosis; R60.0 Localized edema; I25.10 Atherosclerotic heart disease of native coronary artery without angina pectoris; I10 Essential (primary) hypertension; E78.00 Pure hypercholesterolemia, unspecified; K21.9 Gastro-esophageal reflux disease without esophagitis; Z79.899 Other long term (current) drug therapy; Z79.82 Long term (current) use of aspirin; Z96.653 Presence of artificial knee joint, bilateral
CPT/HCPCS: 71010; 80053; 83735; 84484; 85025; 93005; 99285; G0378

== ENCOUNTER 2016-10-21 15:07 | Emergency (ER) | payer OTHER ==
[~2016-10-21] VITALS: Ht 160 cm; Wt 74.0 kg
[~2016-10-21 15:07] MED LIST changes: +GARL1000 PO; +PRAS10TA PO; -TRIA1CAP6 PO; +TRIA37.5 PO
[2016-10-21 15:08] VITALS: BP 143/89; PULSE 89; RESP 16; TEMP 98; O2SAT 96
[2016-10-21] MEDS ORDERED: LIDOCAINE 1%/EPINEPHrine 1:100,000 SOLN 20 ML VIAL INFIL ONE (15:30)
[2016-10-21] MEDS ORDERED: ACETAMINOPHEN/HYDROcodone 325 MG/5 MG TAB PO ONE (15:30)
--- NOTE | 2016-10-21 15:36 | PD ---
HPI Chief Complaint: Fall Time Seen by Provider: 15:31 Travel History International Travel<30 days: No Contact w/Intl Traveler<30days: No Traveled to known affect area: No History of Present Illness HPI 75-year-old female that presents to the ED for evaluation of fall. Patient had a mechanical fall and cut herself on the buttocks as well as her left elbow. She is able to ambulate but she hadn't cuts to the left buttocks that continued to bleed. Per patient she feels that there might be a piece of glass still in there. She does take a blood thinner but she's been starting for about 2 weeks secondary to heart issues. She states that she is supposed to switch to provide access soon. She denies hitting her head or losing consciousness. She is been acting normal. Apparently one of the neighbors applied some sugar to help with the bleeding which did seem to stop the bleeding. Patient did have profoundly substantial bleeding. She is being well otherwise. Per family she did complain of some lightheadedness but they're not sure this is related to her anxiety because of being in the hospital versus from blood loss. She states that her pain in her body is 6 out of 10. The patient she does feel like there is something in her butt. She does not know if there is glass or not. PFSH Past Medical History Hx Anticoagulant Therapy: Yes (asa 81mg, EFFIENT) Cardiac Catheterization: Yes Cardiovascular Problems: Yes High Cholesterol: Yes Chest Pain: Yes Coronary Artery Disease: Yes Diabetes: No Diminished Hearing: No Gastrointestinal Disorders: Yes GERD: Yes Hiatal Hernia: Yes Hypertension: Yes Influenza Vaccination: Yes ?: Not Menopausal: Yes Past Surgical History Cholecystectomy: Yes Coronary Stent: Yes (1, 10/07/16) Eye Surgery: Yes (BILATERAL CATARACTS) Hysterectomy: Yes Joint Replacement: Yes (BILATERAL KNEES) Other Surgery: Yes (RIGHT SHOULDER) Family History Family Hypercholesterolemia: Yes Social History Alcohol Use: No Tobacco Use: No Substance Use: No Allergies-Medications (Allergen,Severity, Reaction): Coded Allergies: *MDRO Multi-Drug Resistant Organism (Verified Adverse Reaction, Unknown, ) 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 Reported Meds & Prescriptions Reported Meds & Active Scripts Active Bactroban Topical (Mupirocin) 22 Gm Cream 1 Applic TOPICAL BID Bactrim DS (Sulfamethoxazole-Trimethoprim) 800-160 Mg Tab 1 Tab PO BID 7 Days Lortab (Hydrocodone-Acetaminophen) 5-325 Mg Tab 1 Tab PO Q6H PRN Reported Effient (Prasugrel) 10 Mg Tab 10 Mg PO DAILY Garlic Oil 1000 (Garlic) 2 Mg Cap 1,000 Mg PO DAILY Triamterene-Hydrochlorothiazide 37.5-25 Mg Tab 1 Tab PO DAILY Vitamin B Complex (B-Complex Vitamins) 1 Tab Calcium (Oyster Shell) 500 Mg Tab Osteo Bi-Flex One A Day (Axjuiivkk-Lvckjhxaqiw-Cykdauc) 1 Tab 1 Tab PO DAILY Eql Cinnamon (Cinnamon) 500 Mg Cap 1,000 Mg PO DAILY Zyrtec-D Tablet (Cetirizine HCl/Pseudoephedrine) 1 Each Tab.er.12h Vitamin D3 (Cholecalciferol) 1,000 Unit Tab 1,000 Units PO DAILY Multi Vitamin Daily (Multiple Vitamin) 1 Tab Tab Fish Oil ([place]-3 Fatty Acids) 300 Mg Capsule Co Q10 (Coenzyme Q10 (Ubidecarenone)) 30 Mg Cap Claritin (Loratadine) [address] (Aspirin) 81 Mg Tabdr 81 Mg PO DAILY Atorvastatin (Atorvastatin Calcium) 40 Mg Tab 50 Mg PO HS Atenolol 25 Mg Tab 25 Mg PO HS Nexium (Esomeprazole DR) 40 Mg Capdr 40 Mg PO DAILY Review of Systems Except as stated in HPI: all other systems reviewed are Neg Physical Exam Narrative GENERAL: SKIN: Warm and dry. Patient has a superficial skin tear to the posterior left elbow about 2 cigarettes in diameter with minimal bleeding. Full range of motion of the entire left upper extremity. HEAD: Atraumatic. Normocephalic. EYES: Pupils equal and round. No scleral icterus. No injection or drainage. ENT: No nasal bleeding or discharge. Mucous membranes pink and moist. Tongue is midline. No uvula deviation. NECK: Trachea midline. No JVD. CARDIOVASCULAR: Regular rate and rhythm. No murmurs, S3, S4. RESPIRATORY: No accessory muscle use. Clear to auscultation. Breath sounds equal bilaterally. GASTROINTESTINAL: Abdomen soft, non-tender, nondistended. Hepatic and splenic margins not palpable. MUSCULOSKELETAL: Extremities without clubbing, cyanosis, or edema. No obvious deformities. No lumbar, thoracic, cervical spine tenderness to palpation. Patient does have some hematoma as well as bruising and swelling noted on the left buttocks. Patient has about 4 small lacerations less than 1 cm each. Patient is a hematoma on each one of them. No obvious foreign body noted at this time. Hard to assess because of the hematoma. Tender to touch. Minimal bleeding noted. NEUROLOGICAL: Awake and alert. No obvious cranial nerve deficits. Motor grossly within normal limits. Five out of 5 muscle strength in the arms and legs. Normal speech. PSYCHIATRIC: Appropriate mood and affect; insight and judgment normal. Data Data Last Documented VS Vital Signs Date Time Temp Pulse Resp B/P Pulse Ox O2 Delivery O2 Flow Rate FiO2 10/21/16 15:08 98.0 89 16 143/89 96 Orders Complete Blood Count With Diff (10/21/16 15:26) Wound Care (10/21/16 15:26) Lidocai-Epi 1%-1:100,000 Inj (Xylocaine- (10/21/16 15:30) Sacrum And Coccyx (10/21/16 ) Acetamin-Hydrocod 325-5 Mg ([place] 5-325 (10/21/16 15:30) Prothrombin Time / Inr (Pt) (10/21/16 15:27) Act Partial Throm Time (Ptt) (10/21/16 15:27) Pelvis, Ap Only (Routine) (10/21/16 ) Labs Laboratory Tests Test 10/21/16 16:00 White Blood Count 10.8 TH/MM3 Red Blood Count 3.98 MIL/MM3 Hemoglobin 11.3 GM/DL Hematocrit 34.5 % Mean Corpuscular Volume 86.7 FL Mean Corpuscular Hemoglobin 28.5 PG Mean Corpuscular Hemoglobin 32.9 % Concent Red Cell Distribution Width 13.5 % Platelet Count 366 TH/MM3 Mean Platelet Volume 8.8 FL Neutrophils (%) (Auto) 75.4 % Lymphocytes (%) (Auto) 15.8 % Monocytes (%) (Auto) 7.6 % Eosinophils (%) (Auto) 0.7 % Basophils (%) (Auto) 0.5 % Neutrophils # (Auto) 8.1 TH/MM3 Lymphocytes # (Auto) 1.7 TH/MM3 Monocytes # (Auto) 0.8 TH/MM3 Eosinophils # (Auto) 0.1 TH/MM3 Basophils # (Auto) 0.1 TH/MM3 CBC Comment DIFF FINAL Differential Comment MDM Medical Decision Making Medical Screen Exam Complete: Yes Emergency Medical Condition: Yes Medical Record Reviewed: Yes Interpretation(s) xrays negative for FB or bony injury Differential Diagnosis Laceration versus abrasion versus foreign body versus hematoma versus fall versus bleeding Narrative Course 75-year-old female that presents to the ED for evaluation of fall and lacerations. Patient was properly examined and was found to have signs and symptoms consistent with appears to be lacerations with possible foreign body. X-rays were ordered to make sure patient does not have any pieces of glasses is hard to assess on physical exam. After explained procedure to the patient and they agreed to it laceration was repaired as stated in procedure note. X-rays do not show any sign of foreign body. Patient was reassured. I do not see any on examination. This time I believe the patient is likely feeling the hematomas she's having the discomfort. Follow up closely with PCP for wound care as needed. Patient was told to get sutures removed in 10-14 days. Given prescription for Lortab, Bactrim and Bactroban. Close follow-up with PCP. See ED worsening symptoms. Procedures Procedure Narrative LACERATION LOCATION: left buttocks LENGTH: 1 cm x 4 NUMBER OF STITCHES/JUAN: 6 sutures REPAIR: The area of the laceration was prepped with Betadine and sterilely draped. The laceration was infiltrated with 1% Xylocaine. The wound was copiously irrigated and explored without evidence of foreign body, tendon injury or neurovascular injury. The wound was closed using 3-0 Prolene. This was a 1 layer repair. A sterile dressing was applied. The patient was advised to keep the dressing clean and dry. Patient tolerated the procedure well. Diagnosis Primary Impression: Fall Qualified Code: W19.XXXA - Fall, initial encounter Additional Impressions: Laceration of buttock Qualified Code: S31.821A - Laceration of buttock, left, initial encounter Skin tear of elbow without complication Qualified Code: S51.012A - Skin tear of elbow without complication, left, initial encounter Patient Instructions: General Instructions, Narcotic given in the ED Additional Instructions: Wound care daily with soap and water. You can apply bandaid if needed. Neosporyn or OTC antibiotic ointment to area as needed twice a day for at least 2 weeks to help with scarring and prevent infection. Meoderma OTC for scarring if needed. Avoid sun exposure for 2 months as the sun could make scar darker and more noticeable. Get sutures removed in 10-14 days. See ED if worst. Med/Other Pt SpecificInfo: Prescription(s) given Scripts Mupirocin Topical (Bactroban Topical)22 Gm Cream1 Applic TOPICAL BID #1 TUBE Ref 0 Prov:Ye Hoff MD 10/21/16 Sulfamethoxazole-Trimethoprim (Bactrim DS)800-160 Mg Tab1 Tab PO BID 7 Days Prov:Ye Hoff MD 10/21/16 Hydrocodone-Acetaminophen (Lortab)5-325 Mg Tab1 Tab PO Q6H PRN (PAIN) #15 TAB Prov:Ye Hoff MD 10/21/16 Disposition: 01 DISCHARGE HOME Condition: Tariq Joy Oct 21, 2016 15:36
[2016-10-21] MEDS ORDERED: BACT800T5 PO (15:39)
[2016-10-21] MEDS ORDERED: HYDR-3533 PO (15:39)
[2016-10-21 16:11] LABS: AUTOMATED NEUTROPHIL # 8.1 TH/MM3 (1.8-7.7); BASOPHIL # 0.1 TH/MM3 (0-0.2); BASOPHIL % 0.5 % (0.0-2.0); EOSINOPHIL # 0.1 TH/MM3 (0-0.4); EOSINOPHIL % 0.7 % (0.0-4.0); HEMATOCRIT 34.5 % (35.0-46.0); HEMO FLAGS DIFF FINAL; LYMPH % 15.8 % (9.0-44.0); LYMPHOCYTE # 1.7 TH/MM3 (1.0-4.8); MEAN CELL VOLUME 86.7 FL (80.0-100.0); MEAN CORPUSCULAR HEMOGLOBIN 28.5 PG (27.0-34.0); MEAN CORPUSCULAR HGB CONC 32.9 % (32.0-36.0); MONO % 7.6 % (0.0-8.0); NEUT % 75.4 % (16.0-70.0); PLATELET COUNT 366 TH/MM3 (150-450); RED BLOOD COUNT 3.98 MIL/MM3 (4.00-5.30); RED CELL DISTRIBUTION WIDTH 13.5 % (11.6-17.2); WHITE BLOOD COUNT 10.8 TH/MM3 (4.0-11.0)
--- NOTE | 2016-10-21 16:18 | RADRPT ---
EXAM DATE/TIME: 10/21/2016 15:33 [facility] COMPARISON: PELVIS AP ONLY, October 11, 2013, 12:08. INDICATIONS : Evaluate for foreign body. Patient lacerated left buttock after falling into glass cabinet. MEDICAL HISTORY : None. SURGICAL HISTORY : None. ENCOUNTER: Initial ACUITY: 1 day PAIN SCORE: 10/10 LOCATION: Left buttock FINDINGS: There is no radiopaque foreign body noted. No fracture or dislocation of the pelvis is noted. Mild degenerative changes are noted involving the hip joints bilaterally. Degenerative changes are also n oted involving the lower lumbar spine. CONCLUSION: 1. No acute fracture, dislocation or radiopaque foreign bodies. 2. Mild degenerative changes involving the hip joints and lower lumbar spine. Georgi Barksdale MD on October 21, 2016 at 16:07 Board Certified Radiologist. This report was verified electronically.
--- NOTE | 2016-10-21 16:20 | RADRPT ---
EXAM DATE/TIME: 10/21/2016 15:37 [facility] COMPARISON: No previous studies available for comparison. INDICATIONS : Evaluate for foreign body. Patient lacerated left buttock after falling into glass cabinet. MEDICAL HISTORY : None. SURGICAL HISTORY : None. ENCOUNTER: Initial ACUITY: 1 day PAIN SCORE: 10/10 LOCATION: Left buttock FINDINGS: There is no acute fracture or dislocation. No radiopaque foreign body is noted. CONCLUSION: 1. No acute fracture, dislocation or radiopaque foreign body. Georgi Barksdale MD on October 21, 2016 at 16:08 Board Certified Radiologist. This report was verified electronically.
[2016-10-21] MEDS ORDERED: MUPI2%T TOPICAL (16:21)
[2016-10-21 16:23] LABS: APTT (PATIENT) 23.2 SEC (24.3-30.1); INTERNATIONAL NORMALIZED RATIO 0.9 RATIO; PROTHROMBIN TIME - PATIENT 10.2 SEC (9.8-11.6)
[2016-10-21] MEDS ORDERED: CEPH-460 PO (16:35)
== END 2016-10-21 16:45 | disposition home or self-care (01) ==
LOC: PHEFT 15:07
DX: S31.821A Laceration without foreign body of left buttock, initial encounter (principal); S51.012A Laceration without foreign body of left elbow, initial encounter; R42 Dizziness and giddiness; I10 Essential (primary) hypertension; I25.10 Atherosclerotic heart disease of native coronary artery without angina pectoris; W19.XXXA Unspecified fall, initial encounter; Z79.02 Long term (current) use of antithrombotics/antiplatelets; Z79.82 Long term (current) use of aspirin
CPT/HCPCS: 12002; 72170; 72220; 85025; 85610; 85730

== ENCOUNTER 2016-10-31 17:46 | Emergency (ER) | payer OTHER ==
[~2016-10-31] VITALS: Ht 160 cm; Wt 75.0 kg
[~2016-10-31 17:46] MED LIST changes: +CEPH-460 PO; +HYDR-3533 PO; +MUPI2%T TOPICAL
[2016-10-31 17:50] VITALS: BP 177/61; PULSE 75; RESP 16; TEMP 98.1; O2SAT 97
[2016-10-31 18:11] VITALS: O2SAT 98
--- NOTE | 2016-10-31 18:19 | PD ---
HPI Chief Complaint: Chest Pain Time Seen by Provider: 17:48 Travel History International Travel<30 days: No Contact w/Intl Traveler<30days: No Traveled to known affect area: No History of Present Illness HPI 75-year-old female complains of left-sided chest pain, left shoulder pain. Patient states that she fell 3 days ago. Patient lacerated her left buttock which was sutured in emergency room. Patient states that the pain started after she was discharged. Patient states the pain is sharp pain localized to left shoulder and left-sided chest wall, anterior lateral aspect of the left chest wall. Patient denies any pain radiation. Patient states the pain is worse with deep breathing and movement. Patient denies any fever chills coughing congestion. Patient also complains of left upper arm and left elbow pain. Patient denies any abdominal pain. Patient denies any focal weakness or numbness of extremity. Patient has history of CAD status post left heart cardiac catheter on October 07, 2016. Successful PCI/JONATHAN to proximal LAD. Patient was discharged on aspirin and Effient. PFSH Past Medical History Hx Anticoagulant Therapy: Yes (asa 81mg, EFFIENT) Cardiac Catheterization: Yes Cardiovascular Problems: Yes High Cholesterol: Yes Chest Pain: Yes Coronary Artery Disease: Yes Diabetes: No Diminished Hearing: No Gastrointestinal Disorders: Yes GERD: Yes Hiatal Hernia: Yes Hypertension: Yes Menopausal: Yes Past Surgical History Cholecystectomy: Yes Coronary Stent: Yes (1, 10/07/16) Eye Surgery: Yes (BILATERAL CATARACTS) Hysterectomy: Yes Joint Replacement: Yes (BILATERAL KNEES) Other Surgery: Yes (RIGHT SHOULDER) Family History Family Hypercholesterolemia: Yes Social History Alcohol Use: No Tobacco Use: No Substance Use: No Allergies-Medications (Allergen,Severity, Reaction): Coded Allergies: *MDRO Multi-Drug Resistant Organism (Verified Adverse Reaction, Unknown, ) 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 Reported Meds & Prescriptions Reported Meds & Active Scripts Active Keflex (Cephalexin) 500 Mg Capsule 500 Mg PO Q8H 7 Days Bactroban Topical (Mupirocin) 22 Gm Cream 1 Applic TOPICAL BID Lortab (Hydrocodone-Acetaminophen) 5-325 Mg Tab 1 Tab PO Q6H PRN Reported Effient (Prasugrel) 10 Mg Tab 10 Mg PO DAILY Garlic Oil 1000 (Garlic) 2 Mg Cap 1,000 Mg PO DAILY Triamterene-Hydrochlorothiazide 37.5-25 Mg Tab 1 Tab PO DAILY Vitamin B Complex (B-Complex Vitamins) 1 Tab Calcium (Oyster Shell) 500 Mg Tab Osteo Bi-Flex One A Day (Zrsopvlpw-Dfetfocskgy-Udsvjax) 1 Tab 1 Tab PO DAILY Eql Cinnamon (Cinnamon) 500 Mg Cap 1,000 Mg PO DAILY Zyrtec-D Tablet (Cetirizine HCl/Pseudoephedrine) 1 Each Tab.er.12h Vitamin D3 (Cholecalciferol) 1,000 Unit Tab 1,000 Units PO DAILY Multi Vitamin Daily (Multiple Vitamin) 1 Tab Tab Fish Oil ([place]-3 Fatty Acids) 300 Mg Capsule Co Q10 (Coenzyme Q10 (Ubidecarenone)) 30 Mg Cap Claritin (Loratadine) [address] (Aspirin) 81 Mg Tabdr 81 Mg PO DAILY Atorvastatin (Atorvastatin Calcium) 40 Mg Tab 50 Mg PO HS Atenolol 25 Mg Tab 25 Mg PO HS Nexium (Esomeprazole DR) 40 Mg Capdr 40 Mg PO DAILY Review of Systems General / Constitutional: No: Fever Eyes: No: Visual changes HENT: No: Headaches Cardiovascular: Positive: Chest Pain or Discomfort Respiratory: No: Shortness of Breath Gastrointestinal: No: Abdominal Pain Genitourinary: No: Dysuria Musculoskeletal: Positive: Pain Skin: No Rash Neurologic: No: Weakness Psychiatric: No: Depression Endocrine: No: Polydipsia Hematologic/Lymphatic: No: Easy Bruising Physical Exam Narrative GENERAL: Well-nourished, well-developed patient. SKIN: Focused skin assessment warm/dry. HEAD: Normocephalic. EYES: No scleral icterus. No injection or drainage. NECK: Supple, trachea midline. No JVD or lymphadenopathy. CARDIOVASCULAR: Regular rate and rhythm without murmurs, gallops, or rubs. RESPIRATORY: Breath sounds equal bilaterally. No accessory muscle use. GASTROINTESTINAL: Abdomen soft, non-tender, nondistended. MUSCULOSKELETAL: Patient has diffuse tenderness of the anterior lateral aspect the left chest wall. No crepitus no deformity noted. Breath sounds equal bilaterally. Mild to moderate diffuse tenderness over the left shoulder and left elbow. Full range of motion of the left shoulder and left elbow. Sensorimotor function distally intact. BACK: Nontender without obvious deformity. No CVA tenderness. Neurologic exam normal. Data Data Last Documented VS Vital Signs Date Time Temp Pulse Resp B/P Pulse Ox O2 Delivery O2 Flow Rate FiO2 10/31/16 17:50 98.1 75 16 177/61 97 Orders Electrocardiogram (10/31/16 18:06) Complete Blood Count With Diff (10/31/16 18:06) Comprehensive Metabolic Panel (10/31/16 18:06) Creatine Kinase (Cpk) (10/31/16 18:06) Troponin I (10/31/16 18:06) Prothrombin Time / Inr (Pt) (10/31/16 18:06) Act Partial Throm Time (Ptt) (10/31/16 18:06) Iv Access Insert/Monitor (10/31/16 18:06) Ecg Monitoring (10/31/16 18:06) Oximetry (10/31/16 18:06) Shoulder, Limited(2vws) (10/31/16 18:06) Ribs, Uni (W/Exp Cxr-Min 3vw) (10/31/16 18:06) MDM Medical Decision Making Medical Screen Exam Complete: Yes Emergency Medical Condition: Yes Differential Diagnosis Differential diagnosis including contusion, rib fracture, hemopneumothorax, extremity fracture, dislocation. Narrative Course 75-year-old female with left chest wall pain, left shoulder and left elbow pain. Status post fall 3 days ago. Patient status post cardiac catheter with stent placement 3 weeks ago. Patient's on aspirin and Effient. Jd Jacobs MD Oct 31, 2016 18:19
[2016-10-31 18:34] LABS: BASOPHIL # 0.1 TH/MM3 (0-0.2); BASOPHIL % 0.6 % (0.0-2.0); EOSINOPHIL # 0.1 TH/MM3 (0-0.4); EOSINOPHIL % 0.8 % (0.0-4.0); HEMATOCRIT 31.6 % (35.0-46.0); HEMO FLAGS DIFF FINAL; LYMPH % 18.6 % (9.0-44.0); LYMPHOCYTE # 1.8 TH/MM3 (1.0-4.8); MEAN CELL VOLUME 87.4 FL (80.0-100.0); MEAN CORPUSCULAR HEMOGLOBIN 28.7 PG (27.0-34.0); MEAN CORPUSCULAR HGB CONC 32.8 % (32.0-36.0); MONO % 6.2 % (0.0-8.0); NEUT % 73.8 % (16.0-70.0); PLATELET COUNT 405 TH/MM3 (150-450); RED BLOOD COUNT 3.61 MIL/MM3 (4.00-5.30); WHITE BLOOD COUNT 9.6 TH/MM3 (4.0-11.0)
[2016-10-31 18:42] LABS: CHLORIDE 108 MEQ/L (98-107); POTASSIUM 4.2 MEQ/L (3.5-5.1); SODIUM (NA) 141 MEQ/L (136-145)
[2016-10-31 18:45] LABS: ANION GAP 8 MEQ/L (5-15); BICARBONATE 25.4 MEQ/L (21.0-32.0)
[2016-10-31 18:46] LABS: BLOOD UREA NITROGEN 16 MG/DL (7-18)
[2016-10-31 18:47] LABS: INTERNATIONAL NORMALIZED RATIO 0.9 RATIO; PROTHROMBIN TIME - PATIENT 10.3 SEC (9.8-11.6)
[2016-10-31 18:48] LABS: ALT (GPT) 40 U/L (10-53); AST (GOT) 26 U/L (15-37)
[2016-10-31 18:49] LABS: GLOMERULAR FILTRATION RATE 96 ML/MIN (>89)
[2016-10-31 18:50] LABS: TOTAL BILIRUBIN ADULT 0.5 MG/DL (0.2-1.0)
[2016-10-31 18:51] LABS: ALKALINE PHOSPHATASE 164 U/L (45-117)
[2016-10-31 18:54] LABS: CREATINE KINASE 74 U/L (26-192)
[2016-10-31 19:08] VITALS: BP 169/85; PULSE 58; RESP 16; O2SAT 98
--- NOTE | 2016-10-31 19:12 | PD ---
Physical Exam Date Seen by Provider: Oct 31, 2016 Time Seen by Provider: 19:11 Narrative accepted in transfer of care from Dr Jacobs Data Data Last Documented VS Vital Signs Date Time Temp Pulse Resp B/P Pulse Ox O2 Delivery O2 Flow Rate FiO2 10/31/16 19:08 58 16 169/85 98 Room Air 10/31/16 17:50 98.1 Orders Electrocardiogram (10/31/16 18:06) Complete Blood Count With Diff (10/31/16 18:06) Comprehensive Metabolic Panel (10/31/16 18:06) Creatine Kinase (Cpk) (10/31/16 18:06) Troponin I (10/31/16 18:06) Prothrombin Time / Inr (Pt) (10/31/16 18:06) Act Partial Throm Time (Ptt) (10/31/16 18:06) Iv Access Insert/Monitor (10/31/16 18:06) Ecg Monitoring (10/31/16 18:06) Oximetry (10/31/16 18:06) Shoulder, Limited(2vws) (10/31/16 18:06) Ribs, Uni (W/Exp Cxr-Min 3vw) (10/31/16 18:06) Labs Laboratory Tests Test 10/31/16 18:28 White Blood Count 9.6 TH/MM3 Red Blood Count 3.61 MIL/MM3 Hemoglobin 10.4 GM/DL Hematocrit 31.6 % Mean Corpuscular Volume 87.4 FL Mean Corpuscular Hemoglobin 28.7 PG Mean Corpuscular Hemoglobin 32.8 % Concent Red Cell Distribution Width 14.0 % Platelet Count 405 TH/MM3 Mean Platelet Volume 8.1 FL Neutrophils (%) (Auto) 73.8 % Lymphocytes (%) (Auto) 18.6 % Monocytes (%) (Auto) 6.2 % Eosinophils (%) (Auto) 0.8 % Basophils (%) (Auto) 0.6 % Neutrophils # (Auto) 7.0 TH/MM3 Lymphocytes # (Auto) 1.8 TH/MM3 Monocytes # (Auto) 0.6 TH/MM3 Eosinophils # (Auto) 0.1 TH/MM3 Basophils # (Auto) 0.1 TH/MM3 CBC Comment DIFF FINAL Differential Comment Prothrombin Time 10.3 SEC Prothromb Time International 0.9 RATIO Ratio Activated Partial 25.0 SEC Thromboplast Time Sodium Level 141 MEQ/L Potassium Level 4.2 MEQ/L Chloride Level 108 MEQ/L Carbon Dioxide Level 25.4 MEQ/L Anion Gap 8 MEQ/L Blood Urea Nitrogen 16 MG/DL Creatinine 0.61 MG/DL Estimat Glomerular Filtration 96 ML/MIN Rate Random Glucose 100 MG/DL Calcium Level 8.9 MG/DL Total Bilirubin 0.5 MG/DL Aspartate Amino Transf 26 U/L (AST/SGOT) Alanine Aminotransferase 40 U/L (ALT/SGPT) Alkaline Phosphatase 164 U/L Total Creatine Kinase 74 U/L Troponin I LESS THAN 0.02 NG/ML Total Protein 6.4 GM/DL Albumin 3.1 GM/DL [facility] Medical Record Reviewed: Yes Supervised Visit with SKYLA: No Differential Diagnosis accepted in transfer of care from Dr Jacobs; please refer to his dictation Narrative Course accepted in transfer of care from Dr Jacobs; follow up labs, imaging and disposition Care was actually completed by Valorie Amaral MD Oct 31, 2016 19:12
--- NOTE | 2016-10-31 19:20 | RADRPT ---
EXAM DATE/TIME: 10/31/2016 18:35 [facility] COMPARISON: No previous studies available for comparison. INDICATIONS : Fell. Chest pain. MEDICAL HISTORY : Hypertension. Hiatal hernia. SURGICAL HISTORY : Stent. Total knee replacement, right. Total knee replacement, left. ENCOUNTER: Initial ACUITY: 1 day PAIN SCORE: 8/10 LOCATION: Left ribs FINDINGS: Multiple views of the left ribs were performed. There is no evidence of displaced fracture. No dest ructive lesions or areas of periosteal thickening are seen. Expiratory view of the chest is negative for pneumothorax. The mediastinal structures are midline. CONCLUSION: 1. No acute findings. Bones are osteopenic. No pneumothorax. Ankit Villa MD on October 31, 2016 at 19:16 Board Certified Radiologist. This report was verified electronically.
--- NOTE | 2016-10-31 19:20 | RADRPT ---
EXAM DATE/TIME: 10/31/2016 18:53 [facility] COMPARISON: No previous studies available for comparison. INDICATIONS : Shoulder pain. MEDICAL HISTORY : Hypertension. Hiatal hernia SURGICAL HISTORY : Stent. Total knee replacement, right. Total knee replacement, left. ENCOUNTER: Initial ACUITY: 1 day PAIN SCORE: 10/10 LOCATION: Left upper extremity shoulder FINDINGS: Two view examination of the left shoulder demonstrates no evidence of fracture or dislocation. The g lenohumeral and acromioclavicular joints are maintained. Bony mineralization is normal. CONCLUSION: 1. No acute findings. Ankit Villa MD on October 31, 2016 at 19:18 Board Certified Radiologist. This report was verified electronically.
--- NOTE | 2016-10-31 19:44 | PD ---
Physical Exam Narrative I resume the care of the patient. Data Data Last Documented VS Vital Signs Date Time Temp Pulse Resp B/P Pulse Ox O2 Delivery O2 Flow Rate FiO2 10/31/16 19:08 58 16 169/85 98 Room Air 10/31/16 17:50 98.1 Orders Electrocardiogram (10/31/16 18:06) Complete Blood Count With Diff (10/31/16 18:06) Comprehensive Metabolic Panel (10/31/16 18:06) Creatine Kinase (Cpk) (10/31/16 18:06) Troponin I (10/31/16 18:06) Prothrombin Time / Inr (Pt) (10/31/16 18:06) Act Partial Throm Time (Ptt) (10/31/16 18:06) Iv Access Insert/Monitor (10/31/16 18:06) Ecg Monitoring (10/31/16 18:06) Oximetry (10/31/16 18:06) Shoulder, Limited(2vws) (10/31/16 18:06) Ribs, Uni (W/Exp Cxr-Min 3vw) (10/31/16 18:06) Labs Laboratory Tests Test 10/31/16 18:28 White Blood Count 9.6 TH/MM3 Red Blood Count 3.61 MIL/MM3 Hemoglobin 10.4 GM/DL Hematocrit 31.6 % Mean Corpuscular Volume 87.4 FL Mean Corpuscular Hemoglobin 28.7 PG Mean Corpuscular Hemoglobin 32.8 % Concent Red Cell Distribution Width 14.0 % Platelet Count 405 TH/MM3 Mean Platelet Volume 8.1 FL Neutrophils (%) (Auto) 73.8 % Lymphocytes (%) (Auto) 18.6 % Monocytes (%) (Auto) 6.2 % Eosinophils (%) (Auto) 0.8 % Basophils (%) (Auto) 0.6 % Neutrophils # (Auto) 7.0 TH/MM3 Lymphocytes # (Auto) 1.8 TH/MM3 Monocytes # (Auto) 0.6 TH/MM3 Eosinophils # (Auto) 0.1 TH/MM3 Basophils # (Auto) 0.1 TH/MM3 CBC Comment DIFF FINAL Differential Comment Prothrombin Time 10.3 SEC Prothromb Time International 0.9 RATIO Ratio Activated Partial 25.0 SEC Thromboplast Time Sodium Level 141 MEQ/L Potassium Level 4.2 MEQ/L Chloride Level 108 MEQ/L Carbon Dioxide Level 25.4 MEQ/L Anion Gap 8 MEQ/L Blood Urea Nitrogen 16 MG/DL Creatinine 0.61 MG/DL Estimat Glomerular Filtration 96 ML/MIN Rate Random Glucose 100 MG/DL Calcium Level 8.9 MG/DL Total Bilirubin 0.5 MG/DL Aspartate Amino Transf 26 U/L (AST/SGOT) Alanine Aminotransferase 40 U/L (ALT/SGPT) Alkaline Phosphatase 164 U/L Total Creatine Kinase 74 U/L Troponin I LESS THAN 0.02 NG/ML Total Protein 6.4 GM/DL Albumin 3.1 GM/DL [facility] Supervised Visit with SKYLA: No Interpretation(s) Last Impressions Shoulder X-Ray 10/31/[id number] Signed Impressions: Service Date/Time: Monday, October 31, 2016 18:53 - CONCLUSION: 1. No acute findings. Ankit Villa MD Ribs X-Ray [id number]/31/[id number] Signed Impressions: Service Date/Time: Monday, October 31, 2016 18:35 - CONCLUSION: 1. No acute findings. Bones are osteopenic. No pneumothorax. Ankit iVlla MD 1943 PM. Cardiac enzymes are normal. Diagnosis Primary Impression: Chest wall contusion Qualified Code: S20.212A - Contusion of left chest wall, initial encounter Additional Impression: Contusion of left shoulder Qualified Code: S40.012A - Contusion of left shoulder, initial encounter Patient Instructions: General Instructions Additional Instruction: Tylenol for pain. Follow-up with personal physician. Return if increasing chest pain shortness of breath or worse. Med/Other Pt SpecificInfo: No Change to Meds Disposition: 01 DISCHARGE HOME Condition: Stable Jd Jacobs MD Oct 31, 2016 19:44
--- NOTE | 2016-11-01 17:17 | EKG ---
Date Performed: 10/31/2016 Time Performed: 17:57:54 PTAGE: 75 years EKG: Sinus rhythm LOW QRS VOLTAGE IN PRECORDIAL LEADS BORDERLINE ECG Since PREVIOUS TRACING , no significant change noted PREVIOUS TRACIN10/11/2016 01.54.43 DOCTOR: Roc Proctor Interpretating Date/Time 11/01/2016 17:16:41
== END 2016-10-31 20:10 | disposition home or self-care (01) ==
LOC: PHED 17:46
DX: S20.212A Contusion of left front wall of thorax, initial encounter (principal); S40.012A Contusion of left shoulder, initial encounter; W19.XXXA Unspecified fall, initial encounter
CPT/HCPCS: 71101; 73030; 80053; 82550; 84484; 85025; 85610; 85730; 93005; 99285

== ENCOUNTER 2016-11-23 15:12 | Emergency (ER) | payer OTHER ==
[~2016-11-23] VITALS: Ht 157.5 cm; Wt 72.0 kg
[~2016-11-23 15:12] MED LIST changes: -CEPH-460 PO
[2016-11-23 15:14] VITALS: BP 114/60; PULSE 93; RESP 16; TEMP 99.6; O2SAT 95
[2016-11-23] MEDS ORDERED: ACETAMINOPHEN 325 MG TAB PO ONE (16:15)
[2016-11-23] MEDS ORDERED: diphenhydrAMINE HCL 50 MG/ML VIAL IVP ONE (16:15)
[2016-11-23] MEDS ORDERED: methylPREDNISolone SOD SUCC 125 MG/2 ML VIAL IV PUSH ONE (16:15)
[2016-11-23] MEDS ORDERED: PROCHLORPERAZINE INJ 10 MG/2 ML VIAL IVP ONE (16:15)
[2016-11-23] MEDS ORDERED: SODIUM CHLORIDE 0.9% FLUSH 10 ML FLUSH IVF PRN (16:15)
[2016-11-23] MEDS ORDERED: PLAV75TA29 PO (16:22)
[2016-11-23 16:45] LABS: AUTOMATED NEUTROPHIL # 16.2 TH/MM3 (1.8-7.7); BASOPHIL # 0.2 TH/MM3 (0-0.2); EOSINOPHIL # 0.1 TH/MM3 (0-0.4); EOSINOPHIL % 0.8 % (0.0-4.0); HEMATOCRIT 36.3 % (35.0-46.0); LYMPH % 5.2 % (9.0-44.0); MEAN CELL VOLUME 86.9 FL (80.0-100.0); MEAN CORPUSCULAR HEMOGLOBIN 28.9 PG (27.0-34.0); MEAN CORPUSCULAR HGB CONC 33.2 % (32.0-36.0); MONO % 4.2 % (0.0-8.0); NEUT % 88.8 % (16.0-70.0); PLATELET COUNT 299 TH/MM3 (150-450); RED BLOOD COUNT 4.18 MIL/MM3 (4.00-5.30); RED CELL DISTRIBUTION WIDTH 13.3 % (11.6-17.2); WHITE BLOOD COUNT 18.3 TH/MM3 (4.0-11.0)
[2016-11-23 16:53] LABS: POTASSIUM 3.8 MEQ/L (3.5-5.1)
[2016-11-23 16:57] LABS: BICARBONATE 24.3 MEQ/L (21.0-32.0)
--- NOTE | 2016-11-23 16:59 | RADRPT ---
EXAM DATE/TIME: 11/23/2016 16:37 [facility] COMPARISON: CT BRAIN W/O CONTRAST, October 11, 2013, 12:16. INDICATIONS : Headache and dizziness. RADIATION DOSE: 59.22 CTDIvol (mGy) MEDICAL HISTORY : Cardiovascular disease. Hypertension. Hypercholesterolemia.Anticoagulant therapy. SURGICAL HISTORY : Coronary artery stent. ENCOUNTER: Initial ACUITY: 2 weeks PAIN SCALE: 4/10 LOCATION: cranial TECHNIQUE: Multiple contiguous axial images were obtained of the head. Using automated exposure control and adj ustment of the mA and/or kV according to patient size, radiation dose was kept as low as reasonably a chievable to obtain optimal diagnostic quality images. DICOM format image data is available electro nically for review and comparison. FINDINGS: CEREBRUM: The ventricles are normal for age. No evidence of midline shift, mass lesion, hemorrhage or acute in farction. No extra-axial fluid collections are seen. POSTERIOR FOSSA: The cerebellum and brainstem are intact. The 4th ventricle is midline. The cerebellopontine angle i s unremarkable. EXTRACRANIAL: The visualized portion of the orbits is intact. SKULL: The calvaria is intact. No evidence of skull fracture. CONCLUSION: 1. No evidence of acute intracranial pathology. No masses are identified. Daniel Saez MD on November 23, 2016 at 16:57 Board Certified Radiologist. This report was verified electronically.
[2016-11-23 17:01] LABS: HEMO FLAGS AUTO DIFF
[2016-11-23] MEDS ORDERED: CEPH-460 PO (17:03)
[2016-11-23] MEDS ORDERED: PRED10 PO (17:03)
[2016-11-23 17:23] LABS: PLATELET ESTIMATE SMEAR NORMAL (NORMAL); PLATELET MORPHOLOGY NORMAL (NORMAL); SCAN/DIFF AUTO DIFF CONFIRMED
[2016-11-23] MEDS ORDERED: AZIT250T3 PO (17:47)
--- NOTE | 2016-11-23 17:48 | PD ---
HPI Chief Complaint: Cold / Flu Symptoms Time Seen by Provider: 16:02 Travel History International Travel<30 days: No Contact w/Intl Traveler<30days: No Traveled to known affect area: No History of Present Illness HPI Patient complains of sore throat and cough last several days. She has a headache due to the coughing. She is 75 years old. She also noticed a rash on her chest wall which started 2 days ago after taking prednisone. She has since started Keflex prescribed for a bronchitis type presentation. No shortness of breath. No chest pain. Location pulmonary and ENT. Severity mild to moderate. Onset gradual. PFSH Past Medical History Hx Anticoagulant Therapy: Yes (asa 81mg, EFFIENT) Cardiac Catheterization: Yes Cardiovascular Problems: Yes High Cholesterol: Yes Chest Pain: Yes Coronary Artery Disease: Yes Diabetes: No Diminished Hearing: No Gastrointestinal Disorders: Yes GERD: Yes Hiatal Hernia: Yes Hypertension: Yes Influenza Vaccination: Yes ?: Not Menopausal: Yes Past Surgical History Cholecystectomy: Yes Coronary Stent: Yes (1, 10/07/16) Eye Surgery: Yes (BILATERAL CATARACTS) Hysterectomy: Yes Joint Replacement: Yes (BILATERAL KNEES) Other Surgery: Yes (RIGHT SHOULDER) Family History Family Hypercholesterolemia: Yes Social History Alcohol Use: No Tobacco Use: No Substance Use: No Allergies-Medications (Allergen,Severity, Reaction): Coded Allergies: *MDRO Multi-Drug Resistant Organism (Verified Adverse Reaction, Unknown, ) 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 Reported Prednisone 10 Mg Tab 10 Mg PO DAILY Keflex (Cephalexin) 500 Mg Cap 500 Mg PO Q12H Plavix (Clopidogrel Bisulfate) 75 Mg Tab 75 Mg PO DAILY Garlic Oil 1000 (Garlic) 2 Mg Cap 1,000 Mg PO DAILY Triamterene-Hydrochlorothiazide 37.5-25 Mg Tab 1 Tab PO DAILY Vitamin B Complex (B-Complex Vitamins) 1 Tab Calcium (Oyster Shell) 500 Mg Tab Osteo Bi-Flex One A Day (Cojityrmy-Rclutadheef-Lbjzbcp) 1 Tab 1 Tab PO DAILY Eql Cinnamon (Cinnamon) 500 Mg Cap 1,000 Mg PO DAILY Zyrtec-D Tablet (Cetirizine HCl/Pseudoephedrine) 1 Each Tab.er.12h Vitamin D3 (Cholecalciferol) 1,000 Unit Tab 1,000 Units PO DAILY Multi Vitamin Daily (Multiple Vitamin) 1 Tab Tab Fish Oil ([place]-3 Fatty Acids) 300 Mg Capsule Co Q10 (Coenzyme Q10 (Ubidecarenone)) 30 Mg Cap Claritin (Loratadine) [address] (Aspirin) 81 Mg Tabdr 81 Mg PO DAILY Atorvastatin (Atorvastatin Calcium) 40 Mg Tab 50 Mg PO HS Atenolol 25 Mg Tab 25 Mg PO HS Nexium (Esomeprazole DR) 40 Mg Capdr 40 Mg PO DAILY Review of Systems Except as stated in HPI: all other systems reviewed are Neg Physical Exam Narrative GENERAL: Well-nourished well-developed 75-year-old female no acute distress SKIN: Warm and dry. Erythematous blanching rash overlying the anterior chest wall. HEAD: Atraumatic. Normocephalic. EYES: Pupils equal and round. No scleral icterus. No injection or drainage. ENT: No nasal bleeding or discharge. Mucous membranes pink and moist. NECK: Trachea midline. No JVD. CARDIOVASCULAR: Regular rate and rhythm. RESPIRATORY: No accessory muscle use. Clear to auscultation. Breath sounds equal bilaterally. GASTROINTESTINAL: Abdomen soft, non-tender, nondistended. Hepatic and splenic margins not palpable. MUSCULOSKELETAL: Extremities without clubbing, cyanosis, or edema. No obvious deformities. NEUROLOGICAL: Awake and alert. No obvious cranial nerve deficits. Motor grossly within normal limits. Five out of 5 muscle strength in the arms and legs. Normal speech. PSYCHIATRIC: Appropriate mood and affect; insight and judgment normal. Data Data Last Documented VS Vital Signs Date Time Temp Pulse Resp B/P (MAP) Pulse Ox O2 Delivery O2 Flow Rate FiO2 11/23/16 18:09 97 11/23/16 15:14 99.6 93 16 114/60 (78) Vital signs reviewed Orders Orders Complete Blood Count With Diff (11/23/16 16:10) Basic Metabolic Panel (Bmp) (11/23/16 16:10) Ct Brain W/O Iv Contrast(Rout) (11/23/16 16:10) Ecg Monitoring (11/23/16 16:10) Iv Access Insert/Monitor (11/23/16 16:10) Oximetry (11/23/16 16:10) Sodium Chloride 0.9% Flush (Ns Flush) (11/23/16 16:15) Acetaminophen (Tylenol) (11/23/16 16:15) Prochlorperazine Inj (Compazine Inj) (11/23/16 16:15) Diphenhydramine Inj (Benadryl Inj) (11/23/16 16:15) Methylprednisolone So Succ Inj (Solumedr (11/23/16 16:15) Labs Laboratory Tests Test 11/23/16 16:32 White Blood Count 18.3 TH/MM3 Red Blood Count 4.18 MIL/MM3 Hemoglobin 12.1 GM/DL Hematocrit 36.3 % Mean Corpuscular Volume 86.9 FL Mean Corpuscular Hemoglobin 28.9 PG Mean Corpuscular Hemoglobin Concent 33.2 % Red Cell Distribution Width 13.3 % Platelet Count 299 TH/MM3 Mean Platelet Volume 8.9 FL Neutrophils (%) (Auto) 88.8 % Lymphocytes (%) (Auto) 5.2 % Monocytes (%) (Auto) 4.2 % Eosinophils (%) (Auto) 0.8 % Basophils (%) (Auto) 1.0 % Neutrophils # (Auto) 16.2 TH/MM3 Lymphocytes # (Auto) 1.0 TH/MM3 Monocytes # (Auto) 0.8 TH/MM3 Eosinophils # (Auto) 0.1 TH/MM3 Basophils # (Auto) 0.2 TH/MM3 CBC Comment AUTO DIFF Differential Comment AUTO DIFF CONFIRMED Platelet Estimate NORMAL Platelet Morphology Comment NORMAL Blood Urea Nitrogen 20 MG/DL Creatinine 1.00 MG/DL Random Glucose 103 MG/DL Calcium Level 8.8 MG/DL Sodium Level 137 MEQ/L Potassium Level 3.8 MEQ/L Chloride Level 104 MEQ/L Carbon Dioxide Level 24.3 MEQ/L Anion Gap 9 MEQ/L Estimat Glomerular Filtration Rate 54 ML/MIN [facility] Medical Decision Making Medical Screen Exam Complete: Yes Emergency Medical Condition: Yes Medical Record Reviewed: Yes Differential Diagnosis Pneumonia, bronchitis, allergic reaction drugs, dermatitis Narrative Course CBC & BMP Diagram 11/23/16 16:32 Calcium Level 8.8 Last [address] 11/23/16 1610 Signed Impressions: Service Date/Time: Wednesday, November 23, 2016 16:37 - CONCLUSION: 1. No evidence of acute intracranial pathology. No masses are identified. Daniel Saez MD The patient is resting comfortably and feels better, is alert and in no distress. The patients results and examination findings were discussed. The repeat examination is unremarkable and benign. The history, exam, diagnostic testing, and current condition do not suggest any significant pathology to warrant further testing, continued ED treatment, admission, or surgical evaluation at this point. The vital signs have been stable. The patient does not have uncontrollable pain, intractable vomiting, or other significant symptoms. The patient's condition is stable and appropriate for discharge. The patient will pursue further outpatient evaluation with a primary care physician or other designated or consulting physician as indicated in the discharge instructions. The patient expressed understanding and was agreeable with this plan. Diagnosis Primary Impression: Rash Additional Impressions: Headache Qualified Codes: R51 - Headache Cough Referrals: DR BYRNE 1 day Additional Instructions: IF RASH PERSISTS OR WORSENS, PLEASE RETURN TO ER. PLEASE RETURN TO ER IMMEDIATELY IF YOU DEVELOP ANY DIFFICULTY BREATHING, CHEST TIGHTNESS OR SENSATION OF THROAT FULLNESS. PLEASE RETURN TO THE ER IMMEDIATELY FOR ANY REASON YOU CONSIDER APPROPRIATE. PLEASE STOP TAKING KEFLEX. Med/Other Pt SpecificInfo: Prescription(s) given Scripts Azithromycin (Azithromycin) 250 Mg Tab 250 MG PO DIRECTED for Infection, #6 TAB 0 Refills Take 2 tabs (500 mg) on day 1 then 1 tab daily x 4 days. Prov: Ye Hoff MD 11/23/16 Disposition: 01 DISCHARGE HOME Condition: Stable Ye Hoff MD Nov 23, 2016 17:48
[2016-11-23 18:09] VITALS: O2SAT 97
== END 2016-11-23 18:10 | disposition home or self-care (01) ==
LOC: PHED 15:12
DX: R21 Rash and other nonspecific skin eruption (principal); R51 Headache; R05 Cough; I10 Essential (primary) hypertension
CPT/HCPCS: 70450; 80048; 85025; 96374; 96375; 99285; J0780; J1200; J2930

== ENCOUNTER 2016-12-05 08:50 | Emergency (ER) | payer OTHER ==
[~2016-12-05] VITALS: Ht 157.5 cm; Wt 71.0 kg
[~2016-12-05 08:50] MED LIST changes: +AZIT250T3 PO; +CEPH-460 PO; -HYDR-3533 PO; -MUPI2%T TOPICAL; +PLAV75TA29 PO; -PRAS10TA PO; +PRED10 PO
[2016-12-05 08:58] VITALS: BP 134/69; PULSE 78; RESP 16; TEMP 98.1; O2SAT 98
[2016-12-05] MEDS ORDERED: TRAM50TA PO (09:17)
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
== END 2016-12-05 09:46 | disposition home or self-care (01) ==
LOC: PHED 08:50
DX: M79.672 Pain in left foot (principal); I10 Essential (primary) hypertension; I25.10 Atherosclerotic heart disease of native coronary artery without angina pectoris; Z79.82 Long term (current) use of aspirin; Z95.5 Presence of coronary angioplasty implant and graft
CPT/HCPCS: 99283

== ENCOUNTER 2017-06-15 10:11 | Emergency (ER) | payer OTHER ==
[~2017-06-15] VITALS: Ht 160 cm; Wt 77.4 kg
[~2017-06-15 10:11] MED LIST changes: +ASPI81TA17 PO; -ASPI81TA67 PO; -AZIT250T3 PO; -CALC500T35; -CEPH-460 PO; -CETI1TAB53; -CINN500C13 PO; -GARL1000 PO; -MULT1TAB46; -PRED10 PO; +TRAM50TA PO; -TRIA37.5 PO
[2017-06-15 10:15] VITALS: BP 176/59; PULSE 78; RESP 18; TEMP 97.8; O2SAT 99
--- NOTE | 2017-06-15 10:54 | PD ---
HPI Chief Complaint: Injury Time Seen by Provider: 10:35 Travel History International Travel<30 days: No Contact w/Intl Traveler<30days: No Traveled to known affect area: No History of Present Illness HPI This is a 76-year-old female presented here complaining of left arm swelling. Patient states that she was trying to get in the car and had to lift her left leg up and she heard a pop on her left arm. This occurred about a week ago and did not cause any problems until yesterday she noticed a big bruise on her left arm and it started to be painful. She takes Plavix since she had stent about a year ago and she bruises easily although she does not recall any trauma to the left arm except for the "popping". Patient has history of rotator cuff tear bilaterally, she denies any weakness in the left arm although complaining of tenderness when she lifts up her arm. There is no fevers chills or night sweats PFSH Past Medical History Hx Anticoagulant Therapy: Yes (plavix) Cardiac Catheterization: Yes Cardiovascular Problems: Yes High Cholesterol: Yes Chest Pain: Yes Coronary Artery Disease: Yes Diabetes: No Diminished Hearing: No Gastrointestinal Disorders: Yes GERD: Yes Hiatal Hernia: Yes Hypertension: Yes Influenza Vaccination: Yes ?: Not Menopausal: Yes Past Surgical History Cholecystectomy: Yes Coronary Stent: Yes (, 10/07/16) Eye Surgery: Yes (BILATERAL CATARACTS) Hysterectomy: Yes Joint Replacement: Yes (BILATERAL KNEES) Other Surgery: Yes (RIGHT SHOULDER) Family History Family Hypercholesterolemia: Yes Social History Alcohol Use: No Tobacco Use: No Substance Use: No Allergies-Medications (Allergen,Severity, Reaction): Coded Allergies: *MDRO Multi-Drug Resistant Organism (Verified Adverse Reaction, Unknown, ) 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 Reported Meds & Prescriptions Reported Meds & Active Scripts Active Reported Plavix (Clopidogrel Bisulfate) 75 Mg Tab 75 Mg PO DAILY Vitamin B Complex (B-Complex Vitamins) 1 Tab Osteo Bi-Flex One A Day (Sxvwhnoby-Whqdvtvfkzl-Nqobvbk) 1 Tab 1 Tab PO DAILY Vitamin D3 (Cholecalciferol) 1,000 Unit Tab 1,000 Units PO DAILY Co Q10 (Coenzyme Q10 (Ubidecarenone)) 30 Mg Cap Claritin (Loratadine) [address] (Aspirin) 81 Mg Tabdr 81 Mg PO DAILY Atorvastatin (Atorvastatin Calcium) 40 Mg Tab 50 Mg PO HS Atenolol 25 Mg Tab 25 Mg PO HS Nexium (Esomeprazole DR) 40 Mg Capdr 40 Mg PO DAILY Review of Systems Except as stated in HPI: all other systems reviewed are Neg Physical Exam Narrative GENERAL: Alert oriented 3 no acute distress SKIN: Focused skin assessment warm/dry. HEAD: Atraumatic. Normocephalic. EYES: Pupils equal and round. No scleral icterus. No injection or drainage. ENT: No nasal bleeding or discharge. Mucous membranes pink and moist. NECK: Trachea midline. No JVD. CARDIOVASCULAR: Regular rate and rhythm. No murmur appreciated. RESPIRATORY: No accessory muscle use. Clear to auscultation. Breath sounds equal bilaterally. GASTROINTESTINAL: Abdomen soft, non-tender, nondistended. Hepatic and splenic margins not palpable. MUSCULOSKELETAL: Large bruise on the left arm with nonpitting swelling of the left arm, no open wounds, limited range of motion on shoulder extension from 45 to 90 due to pain, no swelling of the forearm or the hand, pulses intact, arm is not warm to touch nor erythematous. NEUROLOGICAL: Awake and alert. No obvious cranial nerve deficits. Motor grossly within normal limits. Normal speech. PSYCHIATRIC: Appropriate mood and affect; insight and judgment normal. Data Data Last Documented VS Vital Signs Date Time Temp Pulse Resp B/P (MAP) Pulse Ox O2 Delivery O2 Flow Rate FiO2 06/15/17 11:22 68 16 138/71 (93) 96 Room Air 06/15/17 10:15 97.8 Orders Orders Us Arm Venous Doppler (06/15/17 ) Shoulder, Complete (>2vws) (06/15/17 ) Elbow, Complete (4 Vws) (06/15/17 ) Ed Discharge Order (06/15/17 12:00) [facility] Medical Decision Making Medical Screen Exam Complete: Yes Emergency Medical Condition: Yes Differential Diagnosis Hematoma, DVT, fracture, tear or dislocation. Narrative Course This is a 76-year-old female presented there complaining of left arm swelling that occurred after she moved her arm while she was trying to get in the car. Occurred about a week ago although symptoms started to be noticed yesterday. Physical exam remarkable for bruise on the left arm with mild swelling not warm to touch and not erythematous. X-rays are unremarkable for any fracture or dislocation, ultrasound shows no evidence of DVT although shows small hematoma. Explained the patient that the hematoma will be absorbed on its own and that she will need to follow-up with the primary care physician for further evaluation. Patient is stable to be discharged and agrees to the plan of care. Diagnosis Primary Impression: Hematoma Additional Instructions: Follow-up with primary care physician and return to ER if symptoms change or do not improve. Disposition: 01 DISCHARGE HOME Condition: Stable Vasquez Rowell MD Jun 15, 2017 10:54
[2017-06-15 11:22] VITALS: BP 138/71; PULSE 68; RESP 16; O2SAT 96
--- NOTE | 2017-06-15 11:24 | RADRPT ---
EXAM DATE/TIME: 06/15/2017 10:55 [facility] COMPARISON: No previous studies available for comparison. INDICATIONS : Left shoulder pain, heard a pop while getting in the car last week. MEDICAL HISTORY : Hypertension. Hiatal hernia. left rotator cuff tear SURGICAL HISTORY : Stent. Total knee replacement, right. Total knee replacement, left ENCOUNTER: Initial ACUITY: 1 week PAIN SCORE: 2/10 LOCATION: Left distal humerus FINDINGS: Multiple view examination of the left shoulder demonstrates no evidence of fracture or dislocation. The glenohumeral and acromioclavicular joints are maintained. There is normal range of motion betwee n internal and external rotation. Bony mineralization is normal. CONCLUSION: Unremarkable exam for patient's age. Nadeem Bowman MD on June 15, 2017 at 11:21 Board Certified Radiologist. This report was verified electronically.
--- NOTE | 2017-06-15 11:25 | RADRPT ---
EXAM DATE/TIME: 06/15/2017 10:55 [facility] COMPARISON: No previous studies available for comparison. INDICATIONS : Left elbow pain and bruising, heard a pop while getting into car last week. MEDICAL HISTORY : Hypertension. Hiatal hernia. Left rotator cuff tear SURGICAL HISTORY : Stent. Total knee replacement, right. Total knee replacement, left ENCOUNTER: Initial ACUITY: 1 week PAIN SCORE: 2/10 LOCATION: Left shoulder FINDINGS: Multiple view examination of the left elbow demonstrates no soft tissue swelling, joint effusion, or fracture. The osseous structures are in normal alignment. Bony mineralization is normal. CONCLUSION: Unremarkable exam for patient's age. Nadeem Bowman MD on June 15, 2017 at 11:22 Board Certified Radiologist. This report was verified electronically.
--- NOTE | 2017-06-15 11:50 | RADRPT ---
EXAM DATE/TIME: 06/15/2017 11:22 [facility] COMPARISON: No previous studies available for comparison. INDICATIONS : Left arm bruising. Patient had a "pop" in the left arm last week. MEDICAL HISTORY : CAD. Hypercholesterol. Hypertension. Hiatal hernia. GERD. SURGICAL HISTORY : Cholecystectomy. Hysterectomy. Bilateral knee replacment. Right shoulder surgery. ENCOUNTER: Initial ACUITY: 1 day PAIN SCORE: 6/10 LOCATION: Left arm. FINDINGS: There is spontaneous flow documented in the brachial, basilic, cephalic, axillary, and subclavian vei ns. The vessels are compressible and augmentation response is documented. No filling defects are se en. The flow is phasic with respiration. Direction of flow in the jugular vein is caudal. In the area of the bruising along the left upper arm there is a complex fluid collection measuring 3. 0 x 1.9 cm most likely resenting a soft tissue hematoma. CONCLUSION: 1. No evidence of DVT. 2. Small soft tissue hematoma in the left upper arm. Nadeem Bowman MD on June 15, 2017 at 11:46 Board Certified Radiologist. This report was verified electronically.
== END 2017-06-15 12:20 | disposition home or self-care (01) ==
LOC: PHED 10:11
DX: S40.022A Contusion of left upper arm, initial encounter (principal); M79.602 Pain in left arm; I10 Essential (primary) hypertension; I25.10 Atherosclerotic heart disease of native coronary artery without angina pectoris; K21.9 Gastro-esophageal reflux disease without esophagitis; E78.00 Pure hypercholesterolemia, unspecified; Z79.01 Long term (current) use of anticoagulants; Z87.39 Personal history of other diseases of the musculoskeletal system and connective tissue; X58.XXXA Exposure to other specified factors, initial encounter
CPT/HCPCS: 73030; 73080; 93971; 99284

== ENCOUNTER 2017-07-25 16:11 | Emergency (ER) | payer OTHER ==
[~2017-07-25] VITALS: Ht 160 cm; Wt 73.6 kg
[~2017-07-25 16:11] MED LIST changes: -OMEG300C5; -TRAM50TA PO
[2017-07-25 16:16] VITALS: BP 198/84; PULSE 70; RESP 16; TEMP 97.7; O2SAT 98
[2017-07-25] MEDS ORDERED: ACETAMINOPHEN 325 MG TAB PO ONE (16:45)
[2017-07-25] MEDS ORDERED: GELATIN 12 MM/7 MM FOAM TOPICAL ONE (16:45)
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
[2017-07-25] MEDS ORDERED: TRIA1CAP6 PO (16:52)
[2017-08-01] MEDS ORDERED: LORA1CHW2 CHEW (06:03)
[2017-08-01] MEDS ORDERED: OSTETAB12 PO (06:03)
[2017-08-01] MEDS ORDERED: NEXI20CA PO (06:03)
[2017-08-01] MEDS ORDERED: FISH500C (06:03)
[2017-08-01] MEDS ORDERED: D 50CAP2 PO (06:03)
[2017-08-01] MEDS ORDERED: ASPI-516 CHEW (06:03)
[2017-08-01] MEDS ORDERED: FERR325T18 PO (06:03)
[2017-08-01] MEDS ORDERED: multivitamin PO (06:03)
[2017-08-01] MEDS ORDERED: VITACAP7 PO (06:03)
[2017-08-01] MEDS ORDERED: METR-1 PO (07:09)
[2017-08-01] MEDS ORDERED: CIPR-9 PO (07:09)
[2017-08-02] MEDS ORDERED: MULTTAB67 PO (13:15)
== END 2017-07-25 17:18 | disposition home or self-care (01) ==
LOC: PHEFT 16:11
DX: S81.811A Laceration without foreign body, right lower leg, initial encounter (principal); I10 Essential (primary) hypertension; E78.00 Pure hypercholesterolemia, unspecified; I25.10 Atherosclerotic heart disease of native coronary artery without angina pectoris; K21.9 Gastro-esophageal reflux disease without esophagitis; W22.8XXA Striking against or struck by other objects, initial encounter; Z79.02 Long term (current) use of antithrombotics/antiplatelets; Z79.899 Other long term (current) drug therapy
CPT/HCPCS: 12001

== ENCOUNTER 2017-08-01 04:48 | Emergency (ER) | payer OTHER ==
[2017-08-01] MEDS: SODIUM CHLOR 0.9% 1000 ML INJ 1,000 ML IV (05:38)
[2017-08-01] MEDS ORDERED: SODIUM CHLORIDE 0.9% FLUSH 10 ML FLUSH IV FLUSH (05:45)
[2017-08-01 06:01] LABS: BILIRUBIN, URINE NEG (NEG); BLOOD, URINE NEG (NEG); GLUCOSE,URINE NEG (NEG); KETONE, URINE NEG (NEG); NITRITE,URINE NEG (NEG); PH, URINE 5.5 (5.0-8.5); URINE COLOR YELLOW (YELLW/STRAW); URINE LEUKOCYTE ESTERASE TRACE (NEG)
[2017-08-01 06:02] LABS: AUTOMATED NEUTROPHIL # 6.5 TH/MM3 (1.8-7.7); BASOPHIL % 0.3 % (0.0-2.0); EOSINOPHIL # 0.1 TH/MM3 (0-0.4); HEMATOCRIT 39.8 % (35.0-46.0); HEMOGLOBIN 13.2 GM/DL (11.6-15.3); LYMPH % 22.1 % (9.0-44.0); LYMPHOCYTE # 2.1 TH/MM3 (1.0-4.8); MEAN CELL VOLUME 89.5 FL (80.0-100.0); MEAN CORPUSCULAR HEMOGLOBIN 29.7 PG (27.0-34.0); MEAN CORPUSCULAR HGB CONC 33.2 % (32.0-36.0); MEAN PLATELET VOLUME 8.8 FL (7.0-11.0); MONO % 9.4 % (0.0-8.0); MONOCYTE # 0.9 TH/MM3 (0-0.9); NEUT % 67.2 % (16.0-70.0); PLATELET COUNT 403 TH/MM3 (150-450); RED BLOOD COUNT 4.44 MIL/MM3 (4.00-5.30); RED CELL DISTRIBUTION WIDTH 12.7 % (11.6-17.2); WHITE BLOOD COUNT 9.6 TH/MM3 (4.0-11.0)
[2017-08-01 06:05] LABS: HEMO FLAGS DIFF FINAL
[2017-08-01 06:08] LABS: CHLORIDE 107 MEQ/L (98-107); COMMENT (UR) CULT NOT INDICATED; CULTURE IF INDICATED CULT NOT INDICATED; POTASSIUM 3.7 MEQ/L (3.5-5.1); RBC, URINE 0-2 /hpf (0-3); SODIUM (NA) 140 MEQ/L (136-145); SQUAMOUS EPITHELIAL CELL URINE 0-5 /hpf (0-5); WBC, URINE 0-2 /hpf (0-5)
[2017-08-01 06:12] LABS: ALBUMIN 3.3 GM/DL (3.4-5.0); ANION GAP 5 MEQ/L (5-15); BICARBONATE 27.6 MEQ/L (21.0-32.0); BLOOD UREA NITROGEN 19 MG/DL (7-18); CALCIUM 9.5 MG/DL (8.5-10.1); GLUCOSE,RANDOM 103 MG/DL (74-106); LIPASE 175 U/L (73-393)
[2017-08-01 06:15] LABS: ALT (GPT) 29 U/L (10-53); AST (GOT) 20 U/L (15-37); CREATININE 0.64 MG/DL (0.50-1.00); GLOMERULAR FILTRATION RATE 90 ML/MIN (>89)
[2017-08-01 06:17] LABS: TOTAL BILIRUBIN ADULT 0.3 MG/DL (0.2-1.0); TOTAL PROTEIN 7.3 GM/DL (6.4-8.2)
[2017-08-01 06:18] LABS: ALKALINE PHOSPHATASE 115 U/L (45-117)
[2017-08-01] MEDS: IOHEXOL 350 MG/ML 10 ML VIAL (for RAD DIAG) IVCONTRAST (06:40)
[2017-08-01] MEDS: metroNIDAZOLE 500 MG INJ 100 ML IV (07:31)
[2017-08-01] MEDS: CIPROFLOXACIN 400 MG PREMIX 200 ML IV (08:21)
== END 2017-08-01 10:27 | disposition home or self-care (01) ==
LOC: PHED 04:48
DX: K92.2 Gastrointestinal hemorrhage, unspecified (principal); K57.92 Diverticulitis of intestine, part unspecified, without perforation or abscess without bleeding; E78.00 Pure hypercholesterolemia, unspecified; I25.10 Atherosclerotic heart disease of native coronary artery without angina pectoris; K21.9 Gastro-esophageal reflux disease without esophagitis; I10 Essential (primary) hypertension; Z79.02 Long term (current) use of antithrombotics/antiplatelets; Z79.82 Long term (current) use of aspirin; Z79.899 Other long term (current) drug therapy
CPT/HCPCS: 74177; 80053; 81001; 83690; 85025; 96361; 96365; 96367; 99284-25